=== PATIENT | female | born 1965 | race Caucasian/White ===

== ENCOUNTER → 2017-09-02 10:24 | Outpatient (CLI) | payer MEDICAID, SELFPAY ==
--- NOTE | 2017-09-02 10:27 | NM_ITS ---
NM hepatobiliary wo pharm HISTORY: Right upper quadrant pain ITS.REASON: RUQ PAIN, abnormal ultrasound ORDERING PHYSICIAN: Luc Gonsales MD PATIENT AGE: 51 years COMPARISON: Ultrasound of 07/28/2017 DOSE: 8.57 mCi technetium Choletec Fatty meal/ensure FINDINGS: Homogeneous activity is present within the hepatic parenchyma. Activity is present in the gallbladder by 70 minutes. Activity is present in the small bowel by 10 minutes. The gallbladder ejection fraction is calculated to be 33% No pain reported with the fatty meal ingestion IMPRESSION: 1. Delayed visualization of the gallbladder suggesting chronic inflammatory changes of the cystic duct. 2. Borderline low gallbladder ejection fraction 33%
== END ==
PROVIDERS: PCP Family Medicine; Visit Provider Family Medicine
DX: R10.11 Right upper quadrant pain (principal)
CPT/HCPCS: 78226; A9537

== ENCOUNTER → 2017-09-30 10:34 | Outpatient (CLI) | payer MEDICAID, SELFPAY ==
--- NOTE | 2017-09-30 10:37 | MM_ITS ---
MM Dig screening mamm BI w/CAD CAD Screening ORDERING PHYSICIAN : Yfn Block MD PATIENT AGE: 51 years GENDER: Female COMPARISON:. Prior Mammogram studies from [place], [place] November 2013, September 2010, & 2012 are now found and available INDICATION: No hormones. No new complaints. Bilateral breast reduction. Noncontributory family history TECHNIQUE: Standard CC and MLO images were obtained. R2 CAD reviewed. FINDINGS: Moderate scattered fibroglandular elements. Mild/Moderate density breast bilaterally.. No dominant mass nor suspicious calcifications.CAD computer review highlights no areas of concern There is Minor architecture distortion upper outer quadrant left breast distortion . Patient has had bilateral breast reduction which may account for such. RIGHT BREAST:No areas of concern. Scant potential changes at the deep upper outer quadrant likely from breast reduction surgery history. LEFT BREAST: Mild architectural irregularity is most notable towards upper-outer quadrant left breast but most likely reflects the breast reduction procedure. Although the incisions were the breast reduction appear to be inferior.. No focal area of concern at this time. Prior films of arrived and show similar stable asymmetry at superior left more so than right breast ultrasound supporting stability of this mild architectural irregularity. IMPRESSION: 1. Stable mammogram. No significant new findings Minor architecture irregularity most notable superior left breast, most likely reflecting post reduction breast surgery changes.-. Outside studies further confirm such confirm such. 2. Bilateral follow-up in one year recommended -RADS Category: 2 Benign Finding(s) RECOMMENDED FOLLOW-UP: 1YR - 1 YEAR FOLLOW-UP (A letter has been sent to the patient regarding results of the study.) ...
== END ==
PROVIDERS: PCP Family Medicine; Visit Provider Nurse Practitioner Obstetrics & Gynecology
DX: Z12.31 Encounter for screening mammogram for malignant neoplasm of breast (principal)
CPT/HCPCS: 77067

== ENCOUNTER → 2017-10-13 10:32 | Outpatient (CLI) | payer MEDICAID, SELFPAY ==
[2017-10-13 10:55] LABS: Basophils % 0.5 % (0.1-2.0); Eosinophils # 0.1 K/mm3 (0.0-0.4); Eosinophils % 1.5 % (0.1-12.0); Lymphocytes # 1.3 K/mm3 (0.7-4.5); Mean Corpuscular HGB Conc 32.5 g/dL (31.8-35.4); Mean Corpuscular Hemoglobin 29.8 pg (27.0-31.2); Mean Corpuscular Volume 91.8 fl (81-99); Monocytes # 0.2 K/mm3 (0.1-1.0); Monocytes % 5.8 % (1.7-9.3); Neutrophils # 1.6 K/mm3 (1.8-7.8); Neutrophils % 51.2 % (37.0-80.0); Platelet Count 217 K/mm3 (142-424); Red Blood Count 4.69 M/mm3 (4.20-5.40); Red Cell Distribution Width 11.9 % (11.5-17.5); White Blood Count 3.1 K/mm3 (4.8-10.8)
[2017-10-13 12:59] LABS: Alanine Aminotransferase 35 U/L (12-78); Alkaline Phosphatase 68 U/L (46-116); Anion Gap 11.3 mEq/L (5-15); Aspartate Amino Transferase 21 U/L (15-37); Bilirubin,Total 0.3 mg/dL (0.2-1.0); Blood Urea Nitrogen 21 mg/dL (7-18); Calcium 9.3 mg/dL (8.5-10.1); Carbon Dioxide 30 mmol/L (21.0-32.0); Chloride 104 mmol/L (98-107); Creatinine,Serum 0.69 mg/dL (0.55-1.02); Estimated Glomerular Filt Rate 90 ml/min (>60); GFR (African American) 109 ML/MIN (>60); Globulin 4.2 gm/dl (1.3-3.2); Glucose 78 mg/dL (74-106); Potassium 4.3 mmoL/L (3.5-5.1); Sodium 141 mmol/L (136-145); Total Protein,Serum 8.2 gm/dL (6.4-8.2)
== END ==
PROVIDERS: PCP Family Medicine; Visit Provider Surgery
DX: K81.1 Chronic cholecystitis (principal)
CPT/HCPCS: 36415; 80053; 85025; 93005

== ENCOUNTER 2017-10-22 10:59 | Day surgery (SDC) | payer MEDICAID, SELFPAY ==
[2017-10-19 10:37] VITALS: BMI 24.0
[2017-10-22] VITALS (15 sets, daily range): BP systolic 105–130; BP diastolic 60–78; PULSE 48–66; RESP 16–18; TEMP 36.1–43; O2SAT 98–100
--- NOTE | 2017-10-22 11:44 | P.PN_ITS ---
[facility] Anesthesia Checklist - Patient Identification Patient Identification: Arm Band - Structural Data Admitted From: Home Planned Operative Procedure/s: lap rehana Consent for Planned Operative Procedure(s) Verified: Yes Verified Documents: Surgical Consent, History and Physical - NPO Status Verified Time NPO: 00:00 - Additional verifications Anesthesia Reactions: No - Airway Assessment C-Spine Mobility Assessed: Yes TMJ Mobility Assessed: Yes Dentition: Good Dentition - Neurological Assessment Level of Consciousness: Awake, Alert - Anesthesia Plan Anesthesia Risk discussed: Yes Anesthesia Plan: Verified ASA Class: I Anesthesia Type: General [facility] Anesthesia HX I have reviewed the patient's past medical history: Yes Medical History: Denies:: Cancer, Diabetes Mellitus Type 1, Diabetes Mellitus Type 2, MRSA, Seizures Laterality Cases: Bilateral: Other Other Surgeries: Yes: Tubal Ligation, Other (breast reduction surgery, bladder surgery, jaw surgery) Amputation: No Fractures: No *Family Hx:: Hypertension
--- NOTE | 2017-10-22 12:47 | HMH.OPNOTE ---
Date of procedure: 10/22/17 Pre-op Diagnosis:: Chronic cholecystitis Post-op diagnosis:: same Procedure performed:: Laparoscopic cholecystectomy Surgeon:: Jhoan Neves MD Track Grinder(s):: Leeanne Smith INTERNAL REVIEW AND AUDIT COMPLIANCE:: Luc Sands Anesthesia: GETA Estimated blood loss (mL): 10 Operative findings:: Contraction and thickening of the gallbladder, as well as pericholecystic tissue (specifically infundibulum) Operative note:: After informed consent was obtained, the patient was taken to the operating room and placed in the supine position. General anesthesia was induced and the abdomen was prepped and draped in a sterile fashion. After infiltration with local anesthetic an infraumbilical incision was made. A Veress needle was placed in position. The abdomen was insufflated. A 5 mm optical trocar was placed in position. Under direct visualization, a 12 mm trocar was placed in the subxiphoid position and 2 additional 5 mm trocars were placed in the right upper quadrant. The gallbladder was elevated up and over the liver margin. The tissue around the cystic duct was carefully dissected. 3 clips were placed proximally and the duct was transected with harmonic jada. Harmonic jada were then utilized to dissect the gallbladder away from the liver margin with careful attention to the control of the cystic artery. The gallbladder was placed in a retrieval bag and removed through the subxiphoid trocar site. The right upper quadrant was thoroughly irrigated. No active bleeding or bile leak was noted. Fascia at the subxiphoid trocar site was reapproximated utilizing the NeoClose device. The remaining trocars were removed. All wounds were irrigated and skin was closed with 4-0 Monocryl in a subcuticular fashion. Steri-Strips were applied. The patient's anesthetic agents were reversed and extubation was completed prior to transfer to recovery in stable condition. Condition: stable Disposition: PACU Specimens:: Gallbladder and contents Complications:: No immediate
--- NOTE | 2017-10-22 13:05 | HMH.ANESI ---
[facility] Anesthesia Record Part I Intake, IV Amount: 650 Estimated blood loss (mL): 10 Urine output (mL): 10 Blood Products used (#): none Blood Pressure: 115/78 SaO2: 98 Pulse Rate: 58 Respiratory Rate: 18 Temperature: 97.0 F Patient is:: Drowsy, Stable Stable to PACU at:: 13:05
--- NOTE | 2017-10-22 13:06 | HMH.ANESII ---
[facility] Anesthesia Record Part II Discharge Time: 13:35 Destination: Surgical Day Care (OP Surgery) PACU nurse assessment reviewed?: Yes Patient Condition:: Good Anesthesia Complications:: None
--- NOTE | 2017-10-22 15:37 | SUR.PHASEII ---
pt became nauseated after dressing/movement. Contacted Dr. Neves. Verbal order given for Zofram PO now one time for nausea. Order faxed to pharmacy. Med documented and given. Instructed Pt to let pill dissolve in mouth for best use. Pt verbalzied understanding.
== END 2017-10-22 15:17 | disposition home or self-care (01) ==
LOC: OR 11:00
PROVIDERS: PCP Family Medicine; Visit Provider Surgery
PROC: 0FT44ZZ Resection of Gallbladder, Percutaneous Endoscopic Approach (ICD-10-PCS; CPT 47562; principal; 2017-10-22 10:30)
DX: K81.1 Chronic cholecystitis (principal)
CPT/HCPCS: 47562; 96374; J0131; J2405; J2710

== ENCOUNTER → 2018-10-04 09:04 | Outpatient (CLI) | payer MEDICAID, SELFPAY ==
--- NOTE | 2018-10-04 09:06 | MM_ITS ---
MM Dig screening mamm BI w/CAD CAD Screening COMPARISON: Digital mammograms with CAD 09/30/2017 and 12/26/2013 INDICATION: There is no personal or family history of breast cancer. There has been previous bilateral breast reduction surgery. TECHNIQUE: Standard CC and MLO images were obtained. R2 CAD reviewed. FINDINGS: Moderate scattered fibroglandular densities are seen in both breast primarily upper outer quadrants. There are no significant post surgical changes in either breast. There is no suspicious lesion in either breast and there are no suspicious microcalcifications. IMPRESSION: Moderate breast density no suspicious lesion seen BI-RADS Category: 1 Negative RECOMMENDED FOLLOW-UP: 1YR - 1 YEAR FOLLOW-UP (A letter has been sent to the patient regarding results of the study.)
== END ==
PROVIDERS: PCP Family Medicine; Visit Provider Nurse Practitioner Obstetrics & Gynecology
DX: Z12.31 Encounter for screening mammogram for malignant neoplasm of breast (principal)
CPT/HCPCS: 77067

== ENCOUNTER → 2019-01-16 08:00 | Outpatient (CLI) | payer MEDICAID, SELFPAY ==
[2019-01-16 08:10] LABS: Basophils % 0.5 % (0.1-2.0); Eosinophils # 0.1 K/mm3 (0.0-0.4); Eosinophils % 3.2 % (0.1-12.0); Hematocrit 41.6 % (37.0-47.0); Hemoglobin 13.7 g/dL (12.2-16.2); Lymphocytes # 1.7 K/mm3 (0.7-4.5); Lymphocytes % 44.2 % (10-50); Mean Corpuscular HGB Conc 32.8 g/dL (31.8-35.4); Mean Corpuscular Hemoglobin 29.9 pg (27.0-31.2); Mean Platelet Volume 7.9 fl (7.4-10.4); Monocytes # 0.3 K/mm3 (0.1-1.0); Monocytes % 6.7 % (1.7-9.3); Neutrophils # 1.7 K/mm3 (1.8-7.8); Neutrophils % 45.3 % (37.0-80.0); Platelet Count 223 K/mm3 (142-424); Red Blood Count 4.57 M/mm3 (4.20-5.40); White Blood Count 3.8 K/mm3 (4.8-10.8)
[2019-01-16 10:42] LABS: Alanine Aminotransferase 34 U/L (12-78); Albumin Level 3.6 gm/dL (3.4-5.0); Albumin/Globulin Ratio 0.8 (1.1-1.8); Alkaline Phosphatase 83 U/L (46-116); Anion Gap 13.6 mEq/L (5-15); Aspartate Amino Transferase 18 U/L (15-37); Bilirubin,Total 0.2 mg/dL (0.2-1.0); Blood Urea Nitrogen 20 mg/dL (7-18); Calcium 8.9 mg/dL (8.5-10.1); Carbon Dioxide 29 mmol/L (21.0-32.0); Chloride 103 mmol/L (98-107); Chol/HDL Ratio 3.1 (1-3.5); Cholesterol 202 mg/dL (140-200); Creatinine,Serum 0.88 mg/dL (0.55-1.02); Estimated Glomerular Filt Rate 67 ml/min (>60); GFR (African American) 82 ML/MIN (>60); Globulin 4.4 gm/dl (1.3-3.2); Glucose 84 mg/dL (74-106); HDL Cholesterol 65 mg/dL (29-89); LDL Cholesterol 126 mg/dL (0-130); Potassium 4.6 mmoL/L (3.5-5.1); Sodium 141 mmol/L (136-145); Triglycerides 54 mg/dL (30-200); VLDL Cholesterol 11 mg/dL (0-40)
== END ==
PROVIDERS: Visit Provider Nurse Practitioner Obstetrics & Gynecology
DX: Z01.419 Encounter for gynecological examination (general) (routine) without abnormal findings (principal)
CPT/HCPCS: 36415; 80053; 80061; 85025

== ENCOUNTER → 2019-11-03 10:58 | Outpatient (CLI) | payer OTHER, SELFPAY ==
--- NOTE | 2019-11-03 10:58 | MM_ITS ---
PROCEDURE: MM DIG SCREENING MAMM BI W/CAD BILATERAL DIGITAL BREAST TOMOSYNTHESIS INCLUDED Patient Age:53Y CLINICAL INDICATION: Routine Screening Mammogram 53-year-old Bilateral breast reduction from inferior breast and periareolar incision. No hormones, no new complaints. Family history. Unremarkable COMPARISON: MAMMOGRAM SCREENING DIGITAL from 10/02/2010 MAMMOGRAM SCREENING DIGITAL from 10/11/2012 MAMMOGRAM SCREENING BILATERAL from 12/26/2013 [facility] RT from 01/02/2014 [facility] MM Dig screening mamm BI w/CAD from 09/30/2017 [facility] MM Dig screening mamm BI w/CAD from 10/04/2018 TECHNIQUE: Standard CC and MLO images were obtained. R2 CAD reviewed. BILATERAL DIGITAL BREAST TOMOSYNTHESIS INCLUDED FINDINGS: Minimal residual fibroglandular elements throughout both breast. Progression of mild partial fatty replacement since 2012 2011 mammograms . No suspicious new mass nor dominant mass. No suspicious calcifications.. Tomosynthesis views reveal no discrete additional abnormality with surprisingly minimal architectural distortion from previous breast reduction procedure . Bilateral follow-up 1 year recommended and would be encouraged/emphasized IMPRESSION: No significant new findings Stable mammogram. Previous breast reduction Bilateral follow-up 1 year recommended and should be be encouraged BI-RAD Category: 2 Benign Finding(s) FOLLOW-UP: 1YR 1 Year Follow-up (A letter has been sent to the patient regarding results of the study.) Dictated by: Carlos Enrique Pulliam MD 11/07/2019 09:02 Electronically signed by Carlos Enrique Pulliam MD in [place] 11/07/2019 09:02
== END ==
PROVIDERS: PCP Internal Medicine Adolescent Medicine; Visit Provider Nurse Practitioner Obstetrics & Gynecology
DX: Z12.31 Encounter for screening mammogram for malignant neoplasm of breast (principal)
CPT/HCPCS: 77063; 77067

== ENCOUNTER → 2020-12-18 15:49 | Outpatient (CLI) | payer OTHER, SELFPAY ==
--- NOTE | 2020-12-18 15:53 | MM_ITS ---
PROCEDURE INFORMATION: Exam: MG Screening 3D Mammography Exam date and time: 12/18/2020 3:53 PM Age: 54 years old Clinical indication: Screening exam; No personal or family HX of malignancy; Additional info: Screening xmg TECHNIQUE: Imaging protocol: Screening tomosynthesis and 2D mammography including computer-aided detection (CAD) when performed. COMPARISON: 1. MG MM DIG SCREENING MAMM BI W/CAD 11/03/2019 11:03 AM 2. MG [facility] MM Dig screening mamm BI w/CAD 10/04/2018 9:13 AM 3. MG [facility] MM Dig screening mamm BI w/CAD 09/30/2017 10:53 AM FINDINGS: MAMMOGRAPHY: Breast composition: The breasts are heterogeneously dense, which may obscure small masses. Mass: No new suspicious masses. Architectural distortion: No suspicious distortion. Post reduction changes noted bilaterally. Calcifications: No suspicious calcifications. Asymmetric density: None. Skin thickening: None. Axillary adenopathy: None. IMPRESSION: No mammographic evidence of malignancy. Annual screening is recommended unless otherwise clinically indicated. ASSESSMENT: BI-RADS Category 2: Benign
== END ==
PROVIDERS: PCP Internal Medicine Adolescent Medicine; Visit Provider Nurse Practitioner Obstetrics & Gynecology
DX: Z12.31 Encounter for screening mammogram for malignant neoplasm of breast (principal)
CPT/HCPCS: 77063; 77067

== ENCOUNTER → 2020-12-26 09:30 | Outpatient (CLI) | payer OTHER, SELFPAY ==
--- NOTE | 2020-12-26 09:53 | CA_ITS ---
APPROVED REPORT EXAM: Comprehensive 2D, Doppler, and color-flow Echocardiogram Electrical Appliance Preparer: Ashley Mary, RCS, RVS Ht: 5 ft 4 in Wt: 143lbs BSA: 1.70 HR: 67 bpm BP: 121/73 mmHg Rhythm: NSR Indications: SOB, Family Hx-CM, ex-smoker 2D Dimensions LVOT 1.79 cm (M/F) 1.5-2.5 LA Volume 43.00 mL LA Volume Index [id number] mL/m2 (M/F) 16-34 M-Mode Dimensions RVDd 2.42 cm (0.9-2.6) LA Diam 2.33 cm (1.9-4.0) LVDd 4.58 cm (3.5-5.7) Ao Diam 3.41 cm (2.0-3.7) LVDs 3.08 cm (3.5-5.7) IVSd 0.85 cm (0.6-1.1) PWd 0.52 cm (0.6-1.1) EF (Teich) 63.40% EPSs 0.50 cm FS 34.30% EDV (Teich) 101.90 mL TAPSE 2.51 (<1.7) ESV (Teich) 37.30 mL LV Diastology E Decel Time 157.00 (160-240 msec) E/A Ratio 1.03 MED E' 11.70 (< 7 cm/sec) MED A' 9.80 cm/s E'/MED E' Ratio 7.63 (>14) LAT E' 11.00 (<10 cm/sec) LAT A' 10.10 cm/s E/LAT E' Ratio 8.12 (>14) Aortic Valve LVOT Max 100.00 (70-110 cm/s) LVOT VTI 21.96 cm AoV Peak Cheikh. 145.00 (50-130 cm/s) AO Peak GR. 8.40 mmHg AO Mean GR. 3.90 (<5 mmHg) AO VTI 29.71 (18-25 cm) CAMILLE (VTI) 1.86 (2.5-4.5 cm2) Mitral Valve MV A Velocity 87.00 (40-130 cm/s) E/A Ratio 1.03 MV Decel. Time 157.00 (160-240 ms) Pulmonary Valve PV Peak Velocity 80.00 (50-150 cm/s) VT End VMAX 109.00 cm/s Tricuspid Valve TR P. Velocity 170.00 cm/s Left Ventricle Left atrium is normal size, left ventricle is normal size, there is no concentric left ventricular hypertrophy, visually estimated ejection fraction 55% with no regional wall motion abnormality, diastolic parameters are inconclusive. Right Ventricle Right atrium and right ventricle are normal size and contractility. Aortic Valve Aortic valve is grossly normal, there is no aortic stenosis or aortic insufficiency. Mitral Valve Mitral valve grossly normal, there is trace mitral regurgitation. Tricuspid Valve Tricuspid grossly normal, there is trace tricuspid regurgitation, tricuspid regurgitation jet velocity is inadequate for calculation of the right ventricular systolic pressure. Pulmonic Valve Pulmonic valve is poorly visualized. Great Vessels Aortic root is normal size. Pericardium No significant pericardial effusion noted. Conclusion 1. Normal left ventricular size, preserved left ventricular systolic function, visually estimated ejection fraction 55% with no regional wall motion abnormality. Diastolic parameters are within normal range. 2. Trace mitral and tricuspid regurgitation. 3. No significant pericardial effusion noted. Electronically signed by : Chacho Chavez, 12/26/2020 15:40:00
== END ==
PROVIDERS: PCP Internal Medicine Adolescent Medicine; Visit Provider Nurse Practitioner Family
DX: R06.02 Shortness of breath (principal)
CPT/HCPCS: 93306

== ENCOUNTER → 2021-09-08 09:44 | Outpatient (CLI) | payer OTHER, SELFPAY ==
[2021-09-08 11:12] LABS: Alanine Aminotransferase 23 U/L (12-78); Albumin Level 4.5 g/dl (3.5-5.0); Albumin/Globulin Ratio 1.5 (1.1-1.8); Alkaline Phosphatase 64 U/L (38-126); Anion Gap 10.3 mEq/L (5-15); Aspartate Amino Transferase 33 U/L (14-36); Bilirubin,Total 0.3 mg/dl (0.2-1.3); Blood Urea Nitrogen 18 mg/dl (7-17); Calcium 9.7 mg/dl (8.4-10.2); Carbon Dioxide 33 mmol/L (22.0-30.0); Chloride 101 mmol/L (98-107); Chol/HDL Ratio 3.3 (1-3.5); Cholesterol 208 mg/dl (140-200); Estimated Glomerular Filt Rate 75 ml/min (>60); GFR (African American) 90 ML/MIN (>60); Globulin 3.1 g/dL (1.3-3.2); Glucose 88 mg/dl (74-100); HDL Cholesterol 63 mg/dl (40-60); Potassium 4.3 mmoL/L (3.5-5.1); Sodium 140 mmol/L (136-145); Total Protein,Serum 7.6 g/dl (6.3-8.2); Triglycerides 90 mg/dl (30-150); VLDL Cholesterol 18 mg/dL (0-40)
[2021-09-08 11:34] LABS: Direct LDL Cholesterol 117.72 mg/dL (100-129)
== END ==
PROVIDERS: Visit Provider Nurse Practitioner Family
DX: Z00.00 Encounter for general adult medical examination without abnormal findings (principal)
CPT/HCPCS: 36415; 80053; 80061

== ENCOUNTER → 2022-01-22 08:03 | Outpatient (CLI) | payer OTHER, SELFPAY ==
--- NOTE | 2022-01-22 08:13 | MM_ITS ---
PROCEDURE INFORMATION: Exam: MG Bilateral Screening 3D Mammography Exam date and time: 01/22/2022 8:06 AM Age: 56 years old Clinical indication: Screening mammogram. TECHNIQUE: Imaging protocol: Bilateral Screening tomosynthesis and 2D mammography including computer-aided detection (CAD) when performed. COMPARISON: 1. MG MM DIG SCREENING MAMM BI W/CAD 12/18/2020 3:56 PM 2. MG MM DIG SCREENING MAMM BI W/CAD 11/03/2019 11:03 AM 3. MG [facility] MM Dig screening mamm BI w/CAD 10/04/2018 9:13 AM 4. MG [facility] MM Dig screening mamm BI w/CAD 09/30/2017 10:53 AM FINDINGS: MAMMOGRAPHY: Breast composition: There are scattered areas of fibroglandular density. Mass: None. Architectural distortion: No new or suspicious architectural distortion. Calcifications: No new or suspicious calcifications are present Asymmetric density: No new or suspicious asymmetric density is present Skin thickening: None. Axillary adenopathy: None. IMPRESSION: No mammographic evidence of malignancy. Recommend annual screening mammography unless otherwise clinically indicated. ASSESSMENT: BI-RADS category 1: Negative
== END ==
PROVIDERS: PCP Internal Medicine Adolescent Medicine; Visit Provider Nurse Practitioner Obstetrics & Gynecology
DX: Z12.31 Encounter for screening mammogram for malignant neoplasm of breast (principal)
CPT/HCPCS: 77063; 77067

== ENCOUNTER → 2022-12-18 13:20 | Outpatient (CLI) | payer OTHER, SELFPAY ==
--- NOTE | 2022-12-18 13:41 | XR_ITS ---
FINAL REPORT CLINICAL HISTORY: GANGLION CYST OF DORSUM OF LEFT WRIST COMPARISON: None FINDINGS: LEFT WRIST Three views demonstrate no acute fracture or dislocation. The visualized joint spaces are normally aligned. The soft tissues are unremarkable. IMPRESSION: No acute bony abnormality. Reviewed, Interpreted and Dictated by Grover Brown III, MD Transcribed by Regina Gtz Authenticated and . [facility]
[2022-12-18 15:05] LABS: Alanine Aminotransferase 23 U/L (12-78); Albumin Level 4.2 g/dl (3.5-5.0); Albumin/Globulin Ratio 1.4 (1.1-1.8); Alkaline Phosphatase 70 U/L (38-126); Anion Gap 10.4 mEq/L (5-15); Aspartate Amino Transferase 33 U/L (14-36); Bilirubin,Total 0.4 mg/dl (0.2-1.3); Blood Urea Nitrogen 14 mg/dl (7-17); Calcium 9.1 mg/dl (8.4-10.2); Carbon Dioxide 31 mmol/L (22.0-30.0); Chloride 103 mmol/L (98-107); Chol/HDL Ratio 2.9 (1-3.5); Cholesterol 210 mg/dl (140-200); Estimated Glomerular Filt Rate 74 ml/min (>60); GFR (African American) 90 ML/MIN (>60); Glucose 75 mg/dl (74-100); HDL Cholesterol 72 mg/dl (40-60); Potassium 4.4 mmoL/L (3.5-5.1); Sodium 140 mmol/L (136-145); Total Protein,Serum 7.2 g/dl (6.3-8.2); Triglycerides 55 mg/dl (30-150); VLDL Cholesterol 11 mg/dL (0-40)
[2022-12-18 15:16] LABS: Direct LDL Cholesterol 100.23 mg/dL (100-129)
== END ==
PROVIDERS: PCP Nurse Practitioner Family; Visit Provider Nurse Practitioner Family
DX: Z00.00 Encounter for general adult medical examination without abnormal findings (principal); E78.2 Mixed hyperlipidemia
CPT/HCPCS: 36415; 73110; 80053; 80061

== ENCOUNTER 2023-01-04 15:02 | Outpatient (RCR) | payer OTHER, SELFPAY ==
--- NOTE | 2023-01-04 16:06 | HMH.OTOPEV ---
OT Inpatient Evaluation Rehab OT Outpatient Eval Start: 01/04/23 15:55 Freq: Status: Active Protocol: Document 01/04/23 15:55 RMARSHALL (Rec: 01/04/23 16:06 [facility] [id number]) E-signed By Maged Hernadez, OT Outpatient Therapy Subjective History Subjective History Pt is a 57 year old female who reports to therapy for initial evaluation to right elbow. Pt has been experiencing pain in right elbow on both lateral and medial epicondyles for ~2+ years now. She does not recall a specific injury to right elbow initiating the pain. She is right hand dominant. Pt is very active and lifts weights recreationally. Upon evaluation, pt also expressed palpation tenderness over bicep muscle. At this time, she does have a visit scheduled with ortho at the end of the month. Pt's AROM is within normal limits, but strength is slightly declined. 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 Pt has been resting arm and not completing strenuous activity. She reports since resting, she has had decreased pain. Therapist will continue to see patient twice a week in order to address all deficits. 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
== END 2023-01-04 15:05 | disposition home or self-care (01) ==
LOC: OT 15:02
PROVIDERS: PCP Nurse Practitioner Family; Visit Provider Nurse Practitioner Family
DX: M77.11 Lateral epicondylitis, right elbow (principal)
CPT/HCPCS: 97166

== ENCOUNTER 2023-02-21 13:09 | Emergency (ER) | payer OTHER, SELFPAY ==
[2023-02-21 13:22] VITALS: BP 139/96; PULSE 75; RESP 18; TEMP 36.9; O2SAT 100; BMI 24.9
--- NOTE | 2023-02-21 13:25 | XR_ITS ---
PROCEDURE INFORMATION: Exam: XR Right Foot Exam date and time: 02/21/2023 1:33 PM Age: 57 years old Clinical indication: Injury or trauma; Other: Twisted right foot; Blunt trauma; Patient HX: Pain over right fifth metatarsal. ; Additional info: Twisted right foot, base of right 5th mtp pain TECHNIQUE: Imaging protocol: Radiologic exam of the right foot. Views: 3 or more views. COMPARISON: No relevant prior studies available. FINDINGS: Bones/joints: Oblique, minimally displaced fracture mid shaft 5th metatarsal bone. No articular extension. Soft tissues: Normal. IMPRESSION: Oblique, minimally displaced fracture mid shaft 5th metatarsal bone. No articular extension.
--- NOTE | 2023-02-21 13:25 | HMH.EDGENADL ---
Discharge Plan Disposition Patient Disposition: Home, Self-Care Condition: Good Chief Complaint: PAIN Prescriptions Prescriptions: No Action dextroamphetamine-amphetamine 10 mg tablet 10 mg PO Label Comments: TAKE 2 TABLETS BY MOUTH ONCE DAILY FOR 30 DAYS valacyclovir 1 gram tablet 1,000 mg PO Referrals Follow up/Referrals: Luc Meng MD [Primary Care Provider] - See instructions Justen Diop JR, MD [Physician] - See instructions (Right fifth metatarsal fracture) Activity Restrictions/Add. Instructions Additional Instructions/Restrictions: Weightbearing as tolerated, wear boot at all times while not sleeping. Do not bear weight and shower. Move ankle as minimally as possible, as this can worsen fracture pattern. If you have any other concerning signs or symptoms, return to the ER for further evaluation. Dr. Diop will see you in clinic this coming week, contact the clinic listed here on discharge paperwork to schedule appointment on Wednesday, 02/22. Clinical Impressions Clinical Impression: Fracture of fifth metatarsal bone of right foot Qualifiers: Encounter type: initial encounter Fracture type: closed Fracture alignment: displaced Qualified Code(s): S92.351A - Displaced fracture of fifth metatarsal bone, right foot, initial encounter for closed fracture Discharge ED Provider: Luis F Ralph General Adult HPI General Chief complaint: PAIN Stated complaint: [id number] right foot pain, home accident Time Seen by Provider: 02/21/23 13:15 Mode of Arrival: Ambulatory Source of Information: Patient Limitations: No Limitations Description of Symptoms (Recalled from ER Triage Doc. by RN): pt to ed c/o right foot pain. pt states she fell on . History of Present Illness HPI narrative: This is a 57-year-old female with no relevant medical history presenting with right foot pain. Patient states that 2 days prior to arrival, she was walking down the steps and twisted her right foot. Fell down 3 steps, no loss of consciousness. Is having pain at the proximal end of her right fifth digit on her foot. Denies ankle pain,. Patient has been able to bear weight when walking on her heel. Significant pain when trying to walk on her foot flat. No numbness, weakness, tingling, or any other concerns Related Data Home Medications Medication Instructions Recorded Confirmed dextroamphetamine-amphetamine 10 10 mg PO 11/14/20 11/23/22 mg tablet valacyclovir 1 gram tablet 1,000 mg PO 11/14/20 11/23/22 Allergies Allergy/AdvReac Type Severity Reaction Status Date / Time No Known Allergies Allergy Verified 11/23/22 13:47 [facility] Disclaimer: The information contained in this section may have been updated after the patient was seen, as this information can be updated by other users. Surgical History (Updated 11/23/22 @ 13:55 by KARINA Arriaza) History of bladder surgery Hx of breast reduction, elective Hx of cholecystectomy Hx of tubal ligation Family History (Updated 11/23/22 @ 13:55 by KARINA Arriaza) Other No significant family history Social History Smoking Status: Never smoker alcohol intake: never counseling provided: provider counseling substance use type: denies use current occupational status: employed Travel in the last 8 weeks: None household members: spouse housing: house ROS Obtained: Yes All systems reviewed & no additional complaints except as documented Physical Exam General General appearance: alert and in no apparent distress Respiratory Respiratory exam: Absent respiratory distress Cardiovascular Cardiovascular exam: Present other (pulses intact, cap refill intact) Extremities Exam Extremities exam: Present tenderness, edema and other (Swelling, bruising, tenderness distal aspect of right fifth metatarsal. No ankle tenderness, base of fifth metatarsal tenderness, navicular tenderness. Neurovascularly intact) N
--- NOTE | 2023-02-21 13:40 | PC.NURSE ---
pt to radiology
[2023-02-21 14:40] VITALS: BP 140/89; PULSE 76; RESP 18; TEMP 36.9; O2SAT 100
== END 2023-02-21 14:52 | disposition home or self-care (01) ==
PROVIDERS: Emergency Provider Emergency Medicine; PCP Internal Medicine Adolescent Medicine
DX: S92.311A Displaced fracture of first metatarsal bone, right foot, initial encounter for closed fracture (principal); W10.9XXA Fall (on) (from) unspecified stairs and steps, initial encounter
CPT/HCPCS: 73630; 99283; 99284

== ENCOUNTER → 2023-04-02 10:20 | Outpatient (CLI) | payer OTHER, SELFPAY ==
--- NOTE | 2023-04-02 10:24 | XR_ITS ---
FINAL REPORT CLINICAL HISTORY: rt foot pain, f/u fx COMPARISON: 02/21/2023 FINDINGS: Right foot Three views were obtained. There is an oblique subacute fracture of the mid and distal 5th metatarsal. There is increased callus formation at the fracture site. IMPRESSION: Healing fracture as above. Reviewed, Interpreted and Dictated by Grover Brown III, MD Transcribed by Orly Price Authenticated and [facility]
== END ==
PROVIDERS: PCP Internal Medicine Adolescent Medicine; Visit Provider Orthopaedic Surgery
DX: S92.351A Displaced fracture of fifth metatarsal bone, right foot, initial encounter for closed fracture (principal)
CPT/HCPCS: 73630

== ENCOUNTER → 2023-04-07 15:54 | Outpatient (CLI) | payer OTHER, SELFPAY ==
--- NOTE | 2023-04-07 15:57 | MM_ITS ---
PROCEDURE INFORMATION: Exam: MG Bilateral Screening 3D Mammography Exam date and time: 04/07/2023 3:49 PM Age: 57 years old Clinical indication: Screening mammogram TECHNIQUE: Imaging protocol: Bilateral Screening tomosynthesis and 2D mammography including computer-aided detection (CAD) when performed. COMPARISON: 1. MG MM DIG SCREENING MAMM BI W/CAD 01/22/2022 8:06 AM 2. MG MM DIG SCREENING MAMM BI W/CAD 12/18/2020 3:56 PM 3. MG MM DIG SCREENING MAMM BI W/CAD 11/03/2019 11:03 AM 4. MG [facility] MM Dig screening mamm BI w/CAD 10/04/2018 9:13 AM FINDINGS: MAMMOGRAPHY: Breast composition: There are scattered areas of fibroglandular density. Mass: None. Architectural distortion: No new or suspicious architectural distortion. Calcifications: No new or suspicious calcifications are present Asymmetric density: No new or suspicious asymmetric density is present Skin thickening: None. Axillary adenopathy: None. IMPRESSION: No mammographic evidence of malignancy. Recommend annual screening mammography unless otherwise clinically indicated. ASSESSMENT: BI-RADS category 1: Negative
== END ==
PROVIDERS: PCP Internal Medicine Adolescent Medicine; Visit Provider Nurse Practitioner Obstetrics & Gynecology
DX: Z12.31 Encounter for screening mammogram for malignant neoplasm of breast (principal)
CPT/HCPCS: 77063; 77067

== ENCOUNTER → 2023-04-14 10:05 | Outpatient (CLI) | payer OTHER, SELFPAY ==
--- NOTE | 2023-04-14 10:05 | MR_ITS ---
FINAL REPORT CLINICAL HISTORY: LEFT WRIST PAIN, GANGLION CYST COMPARISON: None FINDINGS: Multiplanar MR imaging of the wrist was performed without contrast. The bony structures are intact without evidence of fracture, bone bruise or marrow edema. There is mild degenerative change. There are cysts in multiple carpal bones. There is abnormal signal in the proximal lunate worrisome for osteonecrosis or osteochondral lesion measuring 8 mm transverse dimension. Cysts are noted in the ulnar styloid process. There is no evidence of intrinsic ligament injury. There is a small tear perforation at the radial aspect of the triangular fibrocartilage. There is mild ulnar positive variance and may be ulnar impaction syndrome. There is extensor carpi ulnaris tendinitis. The flexor and extensor tendons are otherwise intact. There is a small cyst in the volar radial aspect of the radiocarpal joint measuring 7 mm and consistent with a ganglion cyst. In addition, there is a 7 mm cyst in the medial subcutaneous tissues also consistent with a ganglion cyst seen just posteromedial to the extensor carpi ulnaris tendon. No focal abnormality is identified of the median nerve. IMPRESSION: Findings worrisome for ulnar impaction syndrome with osteonecrosis or osteochondral lesion in the proximal lunate with small tear or perforation at the radial aspect of the triangular fibrocartilage. Small ganglion cysts volar radial and medial aspect of the wrist. Mild ECU tenosynovitis. Reviewed, Interpreted and Dictated by Grover Brown III, MD Transcribed by Regina Gtz Authenticated and [facility]
== END ==
PROVIDERS: PCP Internal Medicine Adolescent Medicine; Visit Provider Orthopaedic Surgery
DX: M25.532 Pain in left wrist (principal); M67.432 Ganglion, left wrist
CPT/HCPCS: 73221

== ENCOUNTER 2024-05-22 11:06 | Outpatient (CLI) | payer OTHER, SELFPAY ==
[2024-05-22 12:03] LABS: Alanine Aminotransferase 30 U/L (12-78); Albumin Level 4.4 g/dl (3.5-5.0); Albumin/Globulin Ratio 1.3 (1.1-1.8); Alkaline Phosphatase 57 U/L (38-126); Anion Gap 7.5 mEq/L (5-15); Aspartate Amino Transferase 37 U/L (14-36); Bilirubin,Total 0.5 mg/dl (0.2-1.3); Blood Urea Nitrogen 18 mg/dl (7-17); Calcium 10.1 mg/dl (8.4-10.2); Carbon Dioxide 29 mmol/L (22.0-30.0); Chloride 108 mmol/L (98-107); Cholesterol 228 mg/dl (140-200); Estimated Glomerular Filt Rate 65 ml/min (>60); GFR (African American) 78 ML/MIN (>60); Globulin 3.3 g/dL (1.3-3.2); Glucose 84 mg/dl (74-100); HDL Cholesterol 77 mg/dl (40-60); Potassium 4.5 mmoL/L (3.5-5.1); Sodium 140 mmol/L (136-145); Total Protein,Serum 7.7 g/dl (6.3-8.2); Triglycerides 87 mg/dl (30-150); VLDL Cholesterol 17 mg/dL (0-40)
[2024-05-22 12:14] LABS: Direct LDL Cholesterol 108.57 mg/dL (100-129)
== END 2024-05-22 23:59 | disposition home or self-care (01) ==
LOC: LAB 11:11
PROVIDERS: PCP Nurse Practitioner Family; Visit Provider Nurse Practitioner Family
DX: Z00.00 Encounter for general adult medical examination without abnormal findings (principal); E78.2 Mixed hyperlipidemia
CPT/HCPCS: 36415; 80053; 80061

== ENCOUNTER 2024-05-22 11:28 | Emergency (ER) | payer OTHER, SELFPAY ==
--- NOTE | 2024-05-22 11:34 | XR_ITS ---
FINAL REPORT CLINICAL HISTORY: INJURY x 1 week ago COMPARISON: None FINDINGS: Three views of the left foot show no evidence of acute displaced fracture or dislocation of the visualized bony architecture. The joint spaces appear normal. IMPRESSION: Unremarkable exam. Reviewed, Interpreted and Dictated by Delma Jean MD Transcribed by Regina Gtz Authenticated and . [facility]
[2024-05-22 12:13] VITALS: BP 140/72; PULSE 63; RESP 20; TEMP 36.6; O2SAT 100; BMI 25.7
--- NOTE | 2024-05-22 12:16 | PC.NURSE ---
pts family is bedside, I updated them on what happened and the current plan.
--- NOTE | 2024-05-22 12:23 | ED_ITS ---
Discharge Plan Disposition Patient Disposition: Home, Self-Care Condition: Good Prescriptions Prescriptions: No Action dextroamphetamine-amphetamine 10 mg tablet 10 mg PO Patient Comments: TAKE 2 TABLETS BY MOUTH ONCE DAILY FOR 30 DAYS valacyclovir 1 gram tablet 1,000 mg PO Referrals Follow up/Referrals: Samantha Vickers APRN [Nurse Practitioner] - See instructions Lisa Quiroga APRN [Primary Care Provider] - See instructions Christel Betancourt DPM [Staff Physician] - See instructions Activity Restrictions/Add. Instructions Additional Instructions/Restrictions: *weight bearing as tolerated *RICE, Rest the extremity, Ice 15-20 minutes 3-4 times daily, Compress- wear the jose wrap as discussed as much as possible to help reduce swelling and pain, Elevate the extremity when at rest *Jose wrap/Walking boot is for support and help control swelling, use it except in the shower. Be sure that is not to tight but not to loose either *Elevate when resting? *Ibuprofen 600-800mg every 6-8 hours as needed for pain an inflammation. If need something more can take Tylenol in between doses of Ibuprofen to help Immediately follow up with your family doctor for new or worsening of symptoms, or no noticeable improvement over the next 3-5 days Clinical Impressions Clinical Impression: Foot sprain Instructions Patient Instructions: How To Perform RICE (Rest, Ice, Compress, Elevate), DI for Foot Sprain Print Language Print Language: Amharic Discharge ED Provider: Kim Callahan [facility] HPI General Stated complaint: AO- Pain L foot Mode of Arrival: Ambulatory Source of Information: Patient Time Seen by Provider: 05/22/24 12:23 Description of Symptoms (Recalled from Triage Doc. by RN): LEFT FOOT INJURY FROM STEPPING INTO A HOLE HEENT Symptoms (Recalled from RN notes): No Resp Symptoms (Recalled from RN notes): No Skin Symptoms (Recalled from RN notes): No MS Symptoms (Recalled from RN notes): Yes Functional Status (Recalled from RN notes): WNL History of Present Illness Provider Complaint: Patient states that she accidently stepped in a hole and has been having pain in the top of her foot at the base of her toes States she has been icing it and keeping it elevated but it was still sore and hurting so she wanted to get it checked States she has boot at home Related Data Home Medications ?Medication ?Instructions ?Recorded ?Confirmed dextroamphetamine-amphetamine 10 10 mg PO 11/14/20 12/27/23 mg tablet valacyclovir 1 gram tablet 1,000 mg PO 11/14/20 12/27/23 Allergies Allergy/AdvReac Type Severity Reaction Status Date / Time No Known Allergies Allergy Verified 12/27/23 09:01 Worker's Comp Is this a Worker's Comp case?: No [facility] Disclaimer: The information contained in this section may have been updated after the patient was seen, as this information can be updated by other users. Surgical History History of bladder surgery Hx of breast reduction, elective Hx of cholecystectomy Hx of tubal ligation Family History Other No significant family history Social History Smoking Status: Never smoker alcohol intake: never counseling provided: provider counseling substance use type: denies use current occupational status: employed Travel in the last 8 weeks: None household members: spouse housing: house ROS Obtained: Yes All systems reviewed & no additional complaints except as documented and Yes Systems reviewed as appropriate & no additional complaints except as documented Constitutional Constitutional: Reports system reviewed and no additional complaints, except as documented and Reports as per HPI ENT Ears, Nose, Mouth, and Throat: Reports system reviewed and no additional complaints, except as documented and Reports as per HPI Cardiovascular Cardiovascular: Reports system reviewed and no additional complaints, except as documented and Reports as per HPI Respiratory Respiratory: Reports system reviewed and no additional complaints, except as documented and Reports as per HPI Gastrointestinal Gastrointestingal: Reports system reviewed and no additional complaints, except as documented and as per HPI Musculoskeletal Musculoskeletal: Reports system reviewed and no additional complaints, except as documented, Reports as per HPI and Reports other (pain in top of left foot after stepping a hole) Physical Exam General General appearance: alert and in no apparent distress ENT ENT exam: Present mucous membranes moist Chest Chest inspection: Present normal inspection and symmetric chest wall rise Respiratory Respiratory exam: Present normal lung sounds bilaterally; Absent respiratory distress or wheezes Cardiovascular Cardiovascular exam: Present regular rate, normal rhythm and normal heart sounds Expanded Lower Extremity Exam Left: Foot/toe exam: Present tenderness; Absent swelling, abrasion, ecchymosis, deformity or erythema Top foot image: 2 1. reports pain and soreness with walking after she stepped in a hole and twisted her foot, no swelling no discoloration noted + pedal pulses palpated Neurovascular/Tendon exam: Present normal capillary refill Gait: observed and normal Neurological Exam Neurological exam: Present alert, oriented X3 and normal gait Medical Decision Making Medical Records Screening: Per USPSTF and CDC recommendations, given the prevalence of disease in our region, it is our hospital?s policy to screen for HIV and viral Hepatitis for all patients aged 18 and over and those with ongoing risk factors. Rohan Inquiry Pt receiving controlled substance: No Rohan was queried for this patient: No Vital Signs: 05/22/24 12:13 Temperature 97.9 F Temperature Source Oral Pulse Rate [Left Brachial] 63 Respiratory Rate 20 Blood Pressure [Left Arm] 140/72 Blood Pressure Mean [Left Arm] 94 02 Sat by Pulse Oximetry 100 Orders (Tests/Meds): ORDERS Category Date Time Status Foot XR left minimum 3 views [XR foot LT min 3V] Stat Exams 05/22/24 11:34 Taken Radiology Data #1: Image(s): Foot/Toes Image Reviewed: Yes I have reviewed radiologist's interpretation Unremarkable exam no acute or displaced fracture
[2024-05-22 13:04] VITALS: BP 140/72; PULSE 63; RESP 20; TEMP 36.6
== END 2024-05-22 13:05 | disposition home or self-care (01) ==
PROVIDERS: Emergency Provider Nurse Practitioner; PCP Nurse Practitioner Family
DX: M79.672 Pain in left foot (principal); S93.602A Unspecified sprain of left foot, initial encounter; W18.42XA Slipping, tripping and stumbling without falling due to stepping into hole or opening, initial encounter
CPT/HCPCS: 73630; 99203; 99212; G0463

== ENCOUNTER 2024-06-06 10:07 | Outpatient (CLI) | payer OTHER, SELFPAY ==
--- NOTE | 2024-06-06 10:10 | MM_ITS ---
PROCEDURE INFORMATION: Exam: MG Bilateral Screening 3D Mammography Exam date and time: 06/06/2024 9:59 AM Age: 58 years old Clinical indication: Screening. No family history of breast cancer. TECHNIQUE: Imaging protocol: Bilateral Screening tomosynthesis and 2D mammography including computer-aided detection (CAD) when performed. COMPARISON: 1. MG MM DIG SCREENING MAMM BI W/CAD 04/07/2023 3:49 PM 2. MG MM DIG SCREENING MAMM BI W/CAD 01/22/2022 8:06 AM 3. MG MM DIG SCREENING MAMM BI W/CAD 12/18/2020 3:56 PM 4. MG MM DIG SCREENING MAMM BI W/CAD 11/03/2019 11:03 AM FINDINGS: MAMMOGRAPHY: Breast composition: There are scattered areas of fibroglandular density. Mass: None. Architectural distortion: Stable diffuse bilateral architectural distortion with history of reduction mammoplasty. Calcifications: No suspicious calcifications. Asymmetric density: None. Skin thickening: None. Axillary adenopathy: None. IMPRESSION: No mammographic evidence of malignancy. Annual screening is recommended unless otherwise clinically indicated. ASSESSMENT: BI-RADS Category 2: Benign.
== END 2024-06-06 23:59 | disposition home or self-care (01) ==
LOC: RAD 10:07
PROVIDERS: PCP Nurse Practitioner Family; Visit Provider Nurse Practitioner Family
DX: Z12.31 Encounter for screening mammogram for malignant neoplasm of breast (principal)
CPT/HCPCS: 77063; 77067

== ENCOUNTER 2024-06-06 10:31 | Emergency (ER) | payer OTHER, SELFPAY ==
[2024-06-06 10:32] VITALS: BP 143/84; PULSE 75; RESP 16; TEMP 36.6; O2SAT 99; BMI 25.7
--- NOTE | 2024-06-06 10:47 | ED_ITS ---
Discharge Plan Disposition Patient Disposition: Home, Self-Care Condition: Good Prescriptions Prescriptions: No Action dextroamphetamine-amphetamine 10 mg tablet 10 mg PO Patient Comments: TAKE 2 TABLETS BY MOUTH ONCE DAILY FOR 30 DAYS valacyclovir 1 gram tablet 1,000 mg PO Referrals Follow up/Referrals: Roman Collier DO [Staff Physician] - See instructions Luc Meng MD [Primary Care Provider] - See instructions Activity Restrictions/Add. Instructions Additional Instructions/Restrictions: As we discussed, your x-ray shows that you have a fracture of the second metatarsal bone of your foot. We have provided you a walking boot, please bear weight as tolerated. I would recommend you use ibuprofen as needed for pain. I have placed a referral to the orthopedic doctor to have you follow-up to make sure this injury is healing appropriately. Please return with any new or worsening symptoms. Clinical Impressions Clinical Impression: Closed fracture of second metatarsal bone Qualifiers: Encounter type: subsequent encounter Fracture alignment: nondisplaced Laterality: left Instructions Patient Instructions: DI for Foot Fracture Print Language Print Language: Kyrgyz Discharge ED Provider: Nathan Saenz General Adult HPI General Chief complaint: Extremity Injury, Lower Stated complaint: left foot pain and swollen Time Seen by Provider: 06/06/24 10:45 History of Present Illness HPI narrative: Patient is a 60-year-old female who presents with pain over the top of her left foot. This was acute in onset after traumatic injury that occurred francisco roximately 2 weeks ago. She reportedly had x-rays obtained at the time of the incident which were negative at that time. She has been bearing weight on that foot. She denies any previous therapies. She has developed associated swelling over the injured area. No open injuries. No pain elsewhere. No ankle pain. No numbness or tingling. No history of surgeries on that foot. No head injury at that time. Please note that above description of symptoms, in this electronic medical record under categorization of recalled from ER triage doctor by RN are reflective of an initial nursing assessment, however, is not reflective of my full history and physical exam that was personally taken and clarified. Consequentially, this preceding description of symptoms, which may include the patient's categorized chief complaint in the EMR, do not reflect my personal clinical impression, and the ultimate description of history of present illness and patient stated complaints should be deferred to this section of the note. Unless stated otherwise or congruent with this section of the note, additional signs, symptoms, or incongruence should be interpreted as inaccurate with my clinical impression. Related Data Home Medications ?Medication ?Instructions ?Recorded ?Confirmed dextroamphetamine-amphetamine 10 10 mg PO 11/14/20 12/27/23 mg tablet valacyclovir 1 gram tablet 1,000 mg PO 11/14/20 12/27/23 Allergies Allergy/AdvReac Type Severity Reaction Status Date / Time No Known Allergies Allergy Verified 12/27/23 09:01 [facility] Disclaimer: The information contained in this section may have been updated after the patient was seen, as this information can be updated by other users. Surgical History History of bladder surgery Hx of breast reduction, elective Hx of cholecystectomy Hx of tubal ligation Family History Other No significant family history Social History Smoking Status: Never smoker alcohol intake: never counseling provided: provider counseling substance use type: denies use current occupational status: employed Travel in the last 8 weeks: None household members: spouse housing: house Other Medical History Have you received the Flu Vaccine for this season: No Have you received the Pneumonia Vaccine: No ROS Obtained: Yes other As per HPI Physical Exam General General appearance: alert and in no apparent distress Head Head exam: atraumatic and normocephalic Eye Eye exam: Present normal appearance Neck Neck exam: Present normal inspection Chest Chest inspection: Present normal inspection and symmetric chest wall rise Respiratory Respiratory exam: Present normal lung sounds bilaterally; Absent respiratory distress Cardiovascular Cardiovascular exam: Present regular rate and normal rhythm Abdominal Exam Abdominal exam: Present soft Neurological Exam Neurological exam: Present alert and oriented X3 Psychiatric Psychiatric exam: Present normal affect and normal mood Skin Skin exam: Present warm and dry Other Other exam information: Tenderness to palpation of dorsum of left foot, associated mild amount of swe lling. Distally neurovascularly intact Medical Decision Making Medical Records Medical records reviewed: Yes I reviewed the patient's medical records. Screening: Per USPSTF and CDC recommendations, given the prevalence of disease in our region, it is our hospital?s policy to screen for HIV and viral Hepatitis for all patients aged 18 and over and those with ongoing risk factors. Rohan Inquiry Pt receiving controlled substance: No Vital Signs: 06/06/24 10:32 06/06/24 11:00 06/06/24 11:30 Temperature 97.8 F Temperature Source Oral Pulse Rate 64 59 L Pulse Rate [Left Radial] 75 Respiratory Rate 16 Blood Pressure 143/84 H 120/83 Blood Pressure [Right Arm] 143/84 H Blood Pressure Mean 109 Blood Pressure Mean [Right Arm] 103 Blood Pressure Source [Right Arm] Automatic Cuff Blood Pressure Position [Right Arm] Sitting 02 Sat by Pulse Oximetry 99 100 98 Oxygen Delivery Method Room Air Room Air 06/06/24 12:00 06/06/24 12:38 Temperature 97.8 F Temperature Source Pulse Rate 71 71 Pulse Rate [Left Radial] Respiratory Rate 16 Blood Pressure 149/88 H 155/85 H Blood Pressure [Right Arm] Blood Pressure Mean Blood Pressure Mean [Right Arm] Blood Pressure Source [Right Arm] Blood Pressure Position [Right Arm] 02 Sat by Pulse Oximetry 98 Oxygen Delivery Method Room Air Room Air Orders (Tests/Meds): ORDERS Category Date Time Status XR foot LT min 3V Stat Exams 06/06/24 11:29 Completed Medical Decision Narrative: Patient with history and exam per above presenting for evaluation of foot pain Diagnoses considered include fracture, soft tissue injury, no clinical evidence to suggest vascular injury, nerve injury at this time. ED workup and treatment included: Three-view x-ray of left foot Imaging was independently visualized and interpreted by me, significant for closed minimally displaced metatarsal fracture Please refer to radiology report for full details. Patient was provided [place] boot and crutches. I discussed my clinical impression with patient and answered all questions. At this time, the evidence for any other entities in the differential is insufficient to warrant any further testing or ED observation. This was explained to the patient. The patient was advised that persistent or worsening symptoms require further evaluation. Critical Care Critical Care Time Critical Care Time: No
[2024-06-06 11:00] VITALS: BP 143/84; PULSE 64; O2SAT 100
--- NOTE | 2024-06-06 11:29 | XR_ITS ---
FINAL REPORT CLINICAL HISTORY: increasing left foot pain after injury 3 weeks ago FINDINGS: 3 views of the left foot were obtained. There is some periosteal reaction along the distal aspect of the second metatarsal likely representing a subacute fracture. No other focal bony abnormality is identified. A small plantar calcaneal spur is present. IMPRESSION: Subacute distal second metatarsal fracture. Authenticated and [facility]
[2024-06-06 11:30] VITALS: BP 120/83; PULSE 59; O2SAT 98
[2024-06-06 12:00] VITALS: BP 149/88; PULSE 71; O2SAT 98
--- NOTE | 2024-06-06 12:04 | PC.NURSE ---
RAD at BS for xray
--- NOTE | 2024-06-06 12:22 | PC.NURSE ---
Dr. Saenz at BS for pt eval
[2024-06-06 12:38] VITALS: BP 155/85; PULSE 71; RESP 16; TEMP 36.6; O2SAT 98
== END 2024-06-06 12:38 | disposition home or self-care (01) ==
PROVIDERS: Emergency Provider Emergency Medicine; PCP Internal Medicine Adolescent Medicine
DX: M79.672 Pain in left foot (principal); S92.323A Displaced fracture of second metatarsal bone, unspecified foot, initial encounter for closed fracture
CPT/HCPCS: 73630; 99283

== ENCOUNTER 2024-07-05 13:03 | Outpatient (CLI) | payer MEDICAID, SELFPAY ==
--- NOTE | 2024-07-05 13:08 | XR_ITS ---
FINAL REPORT CLINICAL HISTORY: fx..pain COMPARISON: 06/06/2024 FINDINGS: LEFT FOOT Three views of the left foot demonstrate evidence of further interval healing of the distal 2nd metatarsal fracture with increased callus formation of the fracture site. There is no acute fracture or dislocation. The visualized joint spaces are normally aligned. The soft tissues are unremarkable. IMPRESSION: Further interval healing distal 2nd metatarsal fracture. Reviewed, Interpreted and Dictated by Grover Brown III, MD Transcribed by Regina Gtz Authenticated and [facility]
== END 2024-07-05 23:59 | disposition home or self-care (01) ==
LOC: RAD 13:05
PROVIDERS: PCP Internal Medicine Adolescent Medicine; Visit Provider Physician Assistant Surgical
DX: S92.322A Displaced fracture of second metatarsal bone, left foot, initial encounter for closed fracture (principal)
CPT/HCPCS: 73630

== ENCOUNTER 2025-05-21 11:00 | Outpatient (CLI) | payer MEDICAID, SELFPAY ==
--- NOTE | 2025-05-21 11:02 | US_ITS ---
FINAL REPORT CLINICAL HISTORY: MASS LT WRIST FINDINGS: Limited sonographic images were obtained of the left wrist soft tissues at the area of reported palpable abnormality. There is no convincing mass or fluid collection identified. IMPRESSION: Unremarkable exam at the area of interest. Consider MRI for further evaluation if needed. Reviewed, Interpreted and Dictated by Holly Ontiveros MD Transcribed by Regina Gtz Authenticated and [facility]
--- OUTSIDE RECORDS SUMMARY | 2025-05-21 11:05 | XMS_ITS | Clinical Summary ---
Author Organization Healthcare Address [address] [place] [address] Care Team Providers Care Philanthropy Officer Name Role Phone Luc Meng MD Primary Care Provider [phone] Allergies No known active allergies Medications No known medications Social History Tobacco Use Types Packs/Day Years Used Date Smoking Tobacco: Never Smokeless Tobacco: Never Tobacco Cessation:Counseling Given: Not Answered Alcohol Use Standard Drinks/Week Comments Never 0 (1 standard drink = 0.6 oz pur e alcohol) Comments Unknown Sex and Gender Information Value Date Recorded Sex Assigned at Not on file Legal Sex Female 4:59 PM EDT Gender Identity Not on file Sexual Orientation Not on file Last Filed Vital Signs Vital Sign Reading Time Taken Comments Blood Pressure 130/83 07/12/2023 2:19 PM EST Pulse 80 07/12/2023 2:19 PM EST Temperature - - Respiratory Rate - - Oxygen Saturation 97% 07/12/2023 2:19 PM EST Inhaled Oxygen Concentration - - Weight 63.5 kg (140 lb) 07/12/2023 2:19 PM EST Height 162.6 cm (5' 4 ) 07/12/2023 2:19 PM EST Body Mass Index 24.03 07/12/2023 2:19 PM EST Plan of Treatment Health Maintenance Due Date Last Done Comments [facility]-Depression Screening 1966 [facility]-HIV Screening 1966 [facility]-Hepatitis C Screening 1966 [facility]-Infant/Child/Adol SDOH Screenings 1966 [facility]- SDOH Screenings 1984 [facility]-Adult SDOH Screenings 1984 [facility]-DTaP,Tdap,and Td Vaccine s (1 - Tdap) 1985 [facility]-Hepatitis B Vaccines (1 of 3 - 19+ 3-dose series) 1985 [facility]-Pap Smear 12/26/1987 [facility]-Cervical Cancer Screening 1996 [facility]-HPV/Cotest 1996 CT Colonography 12/26/2011 Colonoscopy 12/26/2011 FIT-DNA 12/26/2011 FIT 12/26/2011 FOBT 12/26/2011 Sigmoidoscopy 12/26/2011 [facility]-Colorectal Cancer Screening 12/26/2011 [facility]-Breast Cancer Screening 2016 [facility]-Pneumococcal Vaccine: 50 + Years (1 of 1 - PCV) 2016 [facility]-Zoster Vaccines (1 of 2) 2016 ERR-NWFND-29 Vaccine ( season) 2025 [facility]-Influenza Vaccine (#1) 2025 HPV Vaccines Aged Out No longer eligi ble based on patient's age to complete this topic [facility]-HIB Vaccines Aged Out No longer e ligible based on patient's age to complete this topic [facility]-Hepatitis A Vaccines Aged Out No longer eligible based on patient's age to complete this topic [facility]-IPV Vaccines Aged Out No longer e ligible based on patient's age to complete this topic [facility]-Rotavirus Vaccines Aged Out No lo nger eligible based on patient's age to complete this topic Insurance [employer]ETNA [facility] MEDICAID Care Teams Philanthropy Officer Relationship Specialty Start Date End Date Luc Meng MD [address] [place] [address] PCP - General Internal Medicine 06/01/23
--- OUTSIDE RECORDS SUMMARY | 2025-05-21 11:05 | XMS_ITS | Encounter Summary ---
Author Organization Healthcare Address [address] [place] [address] Care Team Providers Care Mitten Sewer Name Role Phone Luc Meng MD Primary Care Provider [phone] Reason for Referral * Consultation (Routine) - Closed Specialty Diagnoses / Procedures Referred By Buddy porter Referred To Contact Hand Surgery Diagnoses Ganglion cyst of volar aspect of left wrist Ulnar abutment syndrome of left wrist Tenosynovitis of left wrist Luc Meng MD formerly [facility] [place] [address] Phone: tel: fax: [facility] [address] [place] [id number] Phone: tel: fax: Referral ID Status Reason Start Date Expiration Date Visits Re quested Visits Authorized [id number] Closed 05/31/2023 11/29/2024 1 1 Encounter Details Date Type Department Care Team (Late st Contact Info) Description 05/31/2023 Community Orders Community Practice [address] [place] [address] Luc Meng MD formerly [facility] [address] [place] [address] Ganglion cyst of volar aspect of left wrist (Primary Dx); Ulnar abutment syndrome of left wrist; Tenosynovitis of left wrist Social History Tobacco Use Types Packs/Day Years Used Date Smoking Tobacco: Never Assessed Comments Unknown Sex and Gender Information Value Date Recorded Sex Assigned at Not on file Legal Sex Female 4:59 PM EDT Gender Identity Not on file Sexual Orientation Not on file documented as of this encounter Plan of Treatment Scheduled Referrals Name Type Priority Associated Diagnoses Order Schedule Ambulatory referral to Orthopaedics Hand Outpatient Referral Routine Ganglion cyst of volar aspect of left wrist Ulnar abutment syndrome of left wrist Tenosynovitis of left wrist Ordered: 05/31/2023 documented as of this encounter Visit Diagnoses Diagnosis Ganglion cyst of volar aspect of left wrist- Primary Ulnar abutment syndrome of left wrist Tenosynovitis of left wrist documented in this encounter Care Teams Mitten Sewer Relationship Specialty Start Date End Date Luc Meng MD [address] [place] [address] PCP - General Internal Medicine 06/01/23 documented as of this encounter
== END 2025-05-21 23:59 | disposition home or self-care (01) ==
LOC: RAD 11:00
PROVIDERS: PCP Nurse Practitioner Family; Visit Provider Nurse Practitioner Family
DX: R22.32 Localized swelling, mass and lump, left upper limb (principal)
CPT/HCPCS: 76882

== ENCOUNTER 2025-06-12 08:29 | Outpatient (CLI) | payer MEDICAID, SELFPAY ==
--- NOTE | 2025-06-12 08:32 | MR_ITS ---
FINAL REPORT CLINICAL HISTORY: GANGLION CYST.KNOT ON ULNAR SIDE OF WRIST. KNOT COMES AND GOES. MARKER ON KNOT. FINDINGS: Multiplanar and multisequence imaging of the left wrist was obtained without intravenous contrast. BONES/JOINTS: There is subchondral T2 abnormal signal and several subchondral cyst within the lunate which are nonspecific but may be degenerative. Findings could be related to ulnar abutment syndrome. There is a cyst in the ulnar styloid process. There is multijoint degenerative disease. There is no acute osseous abnormality. There is no bone marrow edema. There is no evidence of AVN. LIGAMENTS: The scapholunate ligament is intact. There is no widening of the scapholunate distance. The lunotriquetral ligament is intact. Remaining intrinsic ligaments appear within normal limits. TFCC: The triangular fibrocartilage complex is without acute abnormality. TENDONS/MUSCLES: Tendons are unremarkable without tear. Musculature is unremarkable. OTHER SOFT TISSUES: There is no joint effusion. The median nerve has a normal appearance within the carpal tunnel. The ulnar nerve has a normal appearance. No discrete mass is seen at the marker placed at the area of interest. However,there appears to be nonspecific soft tissue however, along the volar wrist, but not deep to the marker is a 13 mm cystic lesion which could represent a ganglion cyst. IMPRESSION: Abnormal signal in the subchondral lunate which could be related to degenerative disease or ulnar abutment syndrome. No mass at the area of interest. However, along the volar wrist, but not deep to the marker is a 13 mm cystic lesion which could represent a ganglion cyst. Reviewed, Interpreted and Dictated by Holly Ontiveros MD Transcribed by Amarilys Adame Authenticated and [facility]
--- OUTSIDE RECORDS SUMMARY | 2025-06-12 08:53 | XMS_ITS | Encounter Summary ---
Author Organization Healthcare Address [address] [place] [address] Care Team Providers Care Lead Systems Analyst Name Role Phone Luc Meng MD Primary Care Provider [phone] Reason for Referral * Consultation (Routine) - Closed Specialty Diagnoses / Procedures Referred By Buddy porter Referred To Contact Hand Surgery Diagnoses Ganglion cyst of volar aspect of left wrist Ulnar abutment syndrome of left wrist Tenosynovitis of left wrist Luc Meng MD [facility] [place] [address] Phone: tel: fax: [facility] [address] [place] [phone] Phone: tel: fax: Referral ID Status Reason Start Date Expiration Date Visits Re quested Visits Authorized [id number] Closed 05/31/2023 11/29/2024 1 1 Encounter Details Date Type Department Care Team (Late st Contact Info) Description 05/31/2023 Community Orders Community Practice [address] [place] [address] Luc Meng MD [facility] [place] [address] Ganglion cyst of volar aspect of left [...] wrist documented in this encounter Care Teams Lead Systems Analyst Relationship Specialty Start Date End Date Luc Meng MD [address] [place] [address] PCP - General Internal Medicine 06/01/23 documented as of this encounter
--- OUTSIDE RECORDS SUMMARY | 2025-06-12 08:53 | XMS_ITS | Clinical Summary ---
Author Organization Healthcare Address [address] [place] [address] Care Team Providers Care Shellfish Sorter Name Role Phone Luc Meng MD Primary Care Provider [phone] Allergies No known active allergies Medications No [...] 2016 [facility]-Zoster Vaccines (1 of 2) 2016 [id number] Vaccine ( season) 2025 [facility]-Influenza Vaccine (#1) [...] age to complete this topic Insurance AETNA [facility] MEDICAID Care Teams Shellfish Sorter Relationship Specialty Start Date End Date Luc Meng MD [address] [place] [address] PCP - General Internal Medicine 06/01/23
== END 2025-06-12 23:59 | disposition home or self-care (01) ==
LOC: RAD 08:30
PROVIDERS: PCP Nurse Practitioner Family; Visit Provider Nurse Practitioner Family
DX: R93.6 Abnormal findings on diagnostic imaging of limbs (principal); M67.432 Ganglion, left wrist
CPT/HCPCS: 73221

== ENCOUNTER 2025-06-19 08:35 | Outpatient (CLI) | payer MEDICAID, SELFPAY ==
--- NOTE | 2025-06-19 08:38 | MM_ITS ---
PROCEDURE INFORMATION: Exam: MG Bilateral Screening 3D Mammography Exam date and time: 06/19/2025 9:06 AM Age: 59 years old Clinical indication: Screening examination TECHNIQUE: Imaging protocol: Bilateral Screening tomosynthesis and 2D mammography including computer-aided detection (CAD) when performed. COMPARISON: 1. MG MM DIG SCREENING MAMM BI W/CAD 06/06/2024 9:59 AM 2. MG MM DIG SCREENING MAMM BI W/CAD 04/07/2023 3:49 PM FINDINGS: MAMMOGRAPHY: Breast composition: There are scattered areas of fibroglandular density. Mass: None. Architectural distortion: None. Calcifications: No suspicious calcifications. Asymmetric density: None. Skin thickening: None. Axillary adenopathy: None. IMPRESSION: No mammographic evidence of malignancy. Annual screening is recommended unless otherwise clinically indicated. ASSESSMENT: BI-RADS Category 1: Negative.
--- OUTSIDE RECORDS SUMMARY | 2025-06-19 08:40 | XMS_ITS | Clinical Summary ---
Author Organization Healthcare Address [address] [place] [address] Care Team Providers Care Police Officer Crime Prevention Name Role Phone Luc Meng MD Primary Care Provider [phone] Allergies No known active allergies Medications No known medications Encounters Date Type Department Care Team Description 06/18/2025 Community Orders Community Practice [address] [place] [address] Lisa Woods SANTIONE Ganglion cyst (Primary Dx); Arthritis of hand, unspecified laterality from Last 3 Months Social History Tobacco Use Types Packs/Day Years [...] [facility]-HIV Screening 1966 [facility]-Hepatitis C Screening 1966 [facility]-/Child/Adol SDOH Screenings 1966 [facility]- SDOH Screenings 1984 [...] 2016 [facility]-Zoster Vaccines (1 of 2) 2016 [id number]-21 Vaccine (1 - 20 24-25 season) 2025 [facility]-Influenza Vaccine (#1) 2025 HPV [...] age to complete this topic Insurance [facility]NA [facility] MEDICAID Care Teams Police Officer Crime Prevention Relationship Specialty Start Date End Date Luc Meng MD [address] [place] [address] PCP - General Internal Medicine 06/01/23
--- OUTSIDE RECORDS SUMMARY | 2025-06-19 08:40 | XMS_ITS | Encounter Summary ---
Author Organization Healthcare Address [address] [place] [address] Care Team Providers Care Foot Tender Name Role Phone Luc Meng MD Primary Care Provider [phone] Reason for Referral * Consultation (Routine) - Authorized Specialty Diagnoses / Procedures Referred By Buddy porter Referred To Contact Hand Surgery Diagnoses Ganglion cyst Arthritis of hand, unspecified laterality Lisa Woods APRN [address] [place] [address] Phone: tel: fax: Jonny Mata MD [address] [address] Phone: tel: fax: Referral ID Status Reason Start Date Expiration Date Visits Requested Visits Authorized [id number] Authorized Specialty Services Required 12/18/2026 1 1 Encounter Details Date Type Department Care Team (Late st Contact Info) Description 06/18/2025 Community Orders Community Practice [address] [place] [address] Lisa Woods APRN [address] [place] [address] Ganglion cyst (Primary Dx); Arthritis of hand, unspecified laterality Social History Tobacco Use Types Packs/Day Years Used Date Smoking Tobacco: Never Smokeless Tobacco: Never Alcohol Use Standard Drinks/Week Comments Never 0 (1 standard drink = 0.6 oz pur e alcohol) Comments Unknown Sex and Gender Information Value Date Recorded Sex Assigned at Not on file Legal Sex Female 4:59 PM EDT Gender Identity Not on file Sexual Orientation Not on file documented as of this encounter Plan of Treatment Scheduled Referrals Name Type Priority Associated Diagnoses Orde r Schedule Ambulatory referral to Hand Surgery Outpatient Referral Routine Ganglion cyst Arthritis Of Hand, Unspecified Laterality Ordered: 06/18/2025 documented as of this encounter Visit Diagnoses Diagnosis Ganglion cyst- Primary Unspecified ganglion Arthritis of hand, unspecified laterality documented in this encounter Additional Health Concerns Assessment Noted Time A Body Mass Index follow-up plan has been documented for the patient 07/12/2023 4:49 PM EST documented as of this encounter Care Teams Foot Tender Relationship Specialty Start Date End Date Luc Meng MD [address] [place] [address] PCP - General Internal Medicine 06/01/23 documented as of this encounter
--- OUTSIDE RECORDS SUMMARY | 2025-06-19 08:40 | XMS_ITS | Encounter Summary ---
Author Organization Healthcare Address [address] [place] [address] Care Team Providers Care Pigment Furnace Tender Name Role Phone Luc Meng MD Primary Care Provider [phone] Reason for Referral * Consultation (Routine) - Closed Specialty Diagnoses / Procedures Referred By Buddy porter Referred To Contact Hand Surgery Diagnoses Ganglion cyst of volar aspect of left wrist Ulnar abutment syndrome of left wrist Tenosynovitis of left wrist Luc Meng MD [facility] to [facility] [address] [place] [address] Phone: tel: fax: [facility] [address] [place] [phone] Phone: tel: fax: Referral ID Status Reason Start Date Expiration Date Visits Re quested Visits Authorized [id number] Closed 05/31/2023 11/29/2024 1 1 Encounter Details Date Type Department Care Team (Late st Contact Info) Description 05/31/2023 Community Orders Community Practice [address] [place] [address] Luc Meng MD [facility] [address] [place] [address] Ganglion cyst of volar aspect of left [...] wrist documented in this encounter Care Teams Pigment Furnace Tender Relationship Specialty Start Date End Date Luc Meng MD [address] [place] [address] PCP - General Internal Medicine 06/01/23 documented as of this encounter
== END 2025-06-19 23:59 | disposition home or self-care (01) ==
LOC: RAD 08:36
PROVIDERS: PCP Nurse Practitioner Family; Visit Provider Nurse Practitioner Family
DX: Z12.31 Encounter for screening mammogram for malignant neoplasm of breast (principal); R92.323 Mammographic fibroglandular density, bilateral breasts
CPT/HCPCS: 77063; 77067

== ENCOUNTER 2025-08-02 13:57 | Outpatient (CLI) | payer MEDICAID, SELFPAY ==
--- OUTSIDE RECORDS SUMMARY | 2025-06-26 21:02 | XMS_ITS | Continuity of Care Document ---
Author Organization [facility] Phone Care Team Providers Care Concert Manager Name Role Phone BRANDON THORPE Primary Care KRYSTIAN ADAMS Primary Attending [phone] KRYSTIAN ADAMS Admitting KRYSTIAN ADAMS Unavailable [phone] KRYSTIAN ADAMS Surgeon [phone] ALLERGIES AND ADVERSE REACTIONS ALLERGIES AND ADVERSE REACTIONS Code System Allergy Substance Adverse Reaction Date Reaction (Severity) Comment Status Reported By Updated By No Known Allergies [email or web address] on June 20, 2025 1:35:21 PM [facility] FAMILY HISTORY RELATION: Father Status: LIVING SNOMED-CT Diagnosis Age At Onset Information not available RELATION: Mother Status: LIVING SNOMED-CT Diagnosis Age At Onset Information not available RESULTS Patient: EMA GUTIERREZ Date of : [birth year] 25 5 LABORATORY RESULTS Information is not available LABORATORY NARRATIVE RESULTS Information is not available RADIOLOGY RESULTS Information is not available PATHOLOGY NARRATIVE RESULTS ORDER 100: RFS-PATHOLOGY SPE CIMEN REQUEST (LOINC: 25735-8) ORDER DATE: June 21, 2025 11:00:00 AM [facility] Specimen Source: Pathology S pecimen Specimen Type: Surgical path ology specimen, clerical procedure including coding of diagnoses PERFORMING LAB: [address] [id number] Final Result Date: May 312024 2:19:00 AM [facility] (TECH: [facility]) TEST: RFS-PATHOLOGY SPECIMEN REQUEST See Scanned Report Testing p erformed at [facility] [address] [place] [address] or [phone] Srini Paredes M.D., Service Tech/Welderinstrument technician RESULTS No Micro Labs/Results Exist for Patient BLOOD ADMIN RESULTS Information is not available MEDICATIONS HOME MEDICATIONS Status RXNORM NDC Medication Dose Route Frequency Dates Comments Reported By Updated By Active [id number] Adderall Oral Tablet 10 MG 10.0 MG PO BID Last Dose: [id number] on June 20, 2025 1:35:43 PM [place] DISCHARGE MEDICATIONS Status RXNORM NDC Medication Dose Route Frequency Dates Dis pense Data Comments Physician Updated By No Discharge Medication Info rmation Available INPATIENT MEDICATIONS Status RXNORM NDC Medication Dose Route Frequency Rat e Quantity Dates Indication Dispense Data Comments Physician Updated By Discont inued [id number] 2804 0016 505 LIDOCAINE HCL (PF) 2 % SOLN 5.0 ML INTRAV ENOUS ONE TIME ONLY Start: Octobe r 2024 3:57:0 0 PM UTC End: Octobe r 2024 3:57:0 0 PM UTC ANGIE BOLAND MD INTERFAC ED on June 21, 2025 3:56:00 PM [place] Discont inued [id number] 3504 3026 977 propofol (DIPRIVAN) 500 MG/50 ML EMUL 50.0 ML INTRAV ENOUS ONE TIME ONLY Start: Octobe r 2024 3:57:0 0 PM UTC End: Octobe r 2024 3:57:0 0 PM UTC ANGIE BOLAND MD INTERFAC ED on June 21, 2025 3:56:00 PM [place] SOCIAL HISTORY SOCIAL HISTORY - Smoking Status SNOMED-CT Social History Element Description Effective Dates Offered Cessation Comment Updated By [id number] Current Tobacco smoking status Never Smoked [id number] on June 20, 2025 1:40:17 PM [place] SOCIAL HISTORY - Gender Sex: Female SOCIAL HISTORY - Status : status i nformation is not available Intention in Next Year: intention information is not available SOCIAL HISTORY - Assessments Code System Description Status Date Value of Assessment Updated By Comment Assessment Information is no t available SOCIAL HISTORY - [place] Affiliation [place] information is not av ailable SOCIAL HISTORY - Legal Sex Legal Sex information is not available SOCIAL HISTORY - Sexual Behavior Sexual Orientation Gender Identity SNOMED-CT Description SNO MED -CT Description Activity Level No of Partners Partner Type UpdatedBy Information is not available SOCIAL HISTORY - Occupation Occupation information is no t available VITAL SIGNS PATIENT VITAL SIGNS This section displays the mo st recent value for each vital sign as of June 27, 2025 2:02:52 AM UTC Loinc Code Vital Sign Activity Date Result Updated By 8302-2 Body height June 21, 2025 3:19:48 PM UTC 162.56 cm (64.0 in) [id number] on June 21, 2025 3:19:48 PM UTC 84104-5 Body mass index (BMI ) [Ratio] June 21, 2025 3:19:48 PM UTC 25.744 kg/m2 3140-1 Body Surface Area Derived From Formula June 21, 2025 3:19:48 PM UTC 1.7308 m2 8310-5 Body temperature June 21 5:11:00 PM UTC 97.0 [degF] 65733-3 Body weight Measured June 21, 2025 3:19:48 PM UTC 68.03 kg (150.0 lb) [id number] on June 21, 2025 3:19:48 PM UTC 8462-4 Diastolic blood pressure June 21, 2025 5:20:00 PM UTC 57.0 mm[Hg] 8867-4 Heart rate June 21, 2025 5:20:00 PM UTC 55 /min 35559-8 Oxygen saturation in Arterial blood by Pulse oximetry June 21, 2025 5:20:00 PM UTC 100.0 % 9279-1 Respiratory rate June 21 5:20:00 PM UTC 14 /min 8480-6 Systolic blood pressure June 21, 2025 5:20:00 PM UTC 113.0 mm[Hg] PEDIATRIC GROWTH CHART - VITAL SIGNS This section displays Head C ircumference Percentile, Weight for Length Percentile and BMI Percentile Loinc Code Pediatric Measure Age (Months) Result Updat ed By No Pediatric Growth Chart Pe rcentile Information Available. PROCEDURES PATIENT PROCEDURES CODE SYSTEM DESCRIPTION STATUS PERFORMED DATE UPD ATED BY [id number] SNOMED-CT COLONOSCOPY completed June 21 4:00:00 AM UTC [id number] on June 21, 2025 4:38:08 PM UTC PROCEDURE NOTE Procedure Note information i s not available. HEALTH CONCERNS Problems Concern Status Health Concern problem infor mation not available. Smoking Status Status Years Used Consumed packs p er day Health Concern smoking histo ry information not available. Family History Concern Status Health Concern family histor y information not available. ENCOUNTERS ENCOUNTER INFORMATION Reason for Visit COLONOSCOPY Admission June 21, 2025 2:42:[address] [address] Discharge June 21, 2025 10:42:00 PM [facility] DISCHARGED TO HOME OR SELF CARE ENCOUNTER DIAGNOSES Notes information is not madison ilable. Code System Diagnosis Onset Date Diagnosis information is not available. ABSTRACT DIAGNOSES Code System Diagnosis Updated By Abatement Date Z12.11 ICD10 ENCOUNTER FOR SC REENING FOR MALIGNANT NEOPLASM OF COLON [id number] on June 25, 2025 5:27:11 PM UT Z12.11 ICD10 ENCOUNTER FOR SC REENING FOR MALIGNANT NEOPLASM OF COLON [id number] on June 25, 2025 5:27:12 PM UT D12.8 ICD10 BENIGN NEOPLASM OF RECTUM PQ [id number] on June 25, 2025 5:27:12 PM [place] N18.2 ICD10 CHRONIC KIDNEY D ISEASE, STAGE 2 (MILD) [id number] on June 25, 2025 5:27:12 PM [facility] F90.9 ICD10 ATTENTION-DEFICI T HYPERACTIVITY DISORDER, UNSPECIFIED TYPE [id number] on June 25, 2025 5:27:12 PM [facility] Z79.899 ICD10 OTHER LONG-TERM (CURRENT) DRUG THERAPY [id number] on June 25, 2025 5:27:12 PM [facility] CARE TEAM Care Concert Manager Role BRANDON THORPE Primary Care KRYSTIAN ADAMS Primary Attending KRYSTIAN ADAMS Admitting KRYSTIAN ADAMS Referring KRYSTIAN ADAMS Surgeon CARE TEAM CARE general production manager Role on Team Location Telecom Status Start Date End Nathan e Updated By VERO Reyes CRNA Healthcare professional normal June 21, 2025 4:35:00 PM [place] June 21, 2025 10:42:00 PM [facility] [id number] on June 21, 2025 5:12:25 PM [facility] ANGIE BOLAND MD Surgeon normal June 21, 2025 4:35:00 PM [place] June 21, 2025 10:42:00 PM [facility] [id number] on June 21, 2025 5:12:25 PM [facility] MAURILIO DEL ANGELP PCP normal June 21, 2025 2:45:23 PM [place] June 21, 2025 4:00:00 AM [facility] [id number] on June 21, 2025 5:12:[address] FERNANDEZ NAME IN RN PCP normal June 20, 2025 2:27:25 PM UTC June 21, 2025 2:45:23 PM UTC [id number] on June 21, 2025 5:12:25 PM UTC ANGIE BOLAND MD Referring normal June 20, 2025 2:27:25 PM UTC June 21, 2025 4:00:00 AM UTC [id number] on June 21, 2025 5:12:25 PM UTC ANGIE BOLAND MD Attending normal June 20, 2025 2:27:25 PM UTC June 21, 2025 4:00:00 AM UTC [id number] on June 21, 2025 5:12:25 PM UTC ANGIE BOLAND MD Admitting normal June 20, 2025 2:27:25 PM UTC June 21, 2025 4:00:00 AM UTC [id number] on June 21, 2025 5:12:25 PM UTC
--- OUTSIDE RECORDS SUMMARY | 2025-08-02 09:10 | XMS_ITS | Encounter Summary ---
Author Organization Healthcare Address [address] [id number] Care Team Providers Care Cooperage Shop Supervisor Name Role Phone Luc Meng MD Primary Care Provider [phone] Reason for Referral * Consultation (Routine) - Closed Specialty Diagnoses / Procedures Referred By Buddy porter Referred To Contact Occupational Therapy Diagnoses Ulnar impaction syndrome, left Jonny Mata MD [address] [place] [phone] Phone: tel: fax: Referral ID Status Reason Start Date Expiration Date V isits Requested Visits Authorized [id number] Closed Specialty Services Required 08/02/2025 02/01/2027 1 1 Reason for Visit * Reason Comments Follow-up * Consultation (Routine) - Closed Specialty Diagnoses / Procedures Referred By Buddy porter Referred To Contact Hand Surgery Diagnoses Ganglion cyst Arthritis of hand, unspecified laterality Lisa Woods, TRAFFIC REPRESENTATIVE [address] [place] [address] Phone: tel: fax: Jonny Mata MD [address] [place] [phone] Phone: tel: fax: Referral ID Status Reason Start Date Expiration Date V isits Requested Visits Authorized [id number] Closed Specialty Services Required 06/18/2025 12/18/2026 1 1 Encounter Details Date Type Department Care Team (Late st Contact Info) Description 08/02/2025 9:10 AM EST Office Visit Loc Hand [address] [place] [address] Jonny Mata MD [address] [place] [address] Ulnar impaction syndrome, left (Primary Dx) Social History Tobacco Use Types Packs/Day Years [...] on file documented as of this encounter Last Filed Vital Signs Vital Sign Reading Time Taken Comments Blood Pressure 121/80 08/02/2025 9:03 AM EST Pulse 74 08/02/2025 9:03 AM EST Temperature - - Respiratory Rate - - Oxygen Saturation 98% 08/02/2025 9:03 AM EST Inhaled Oxygen Concentration - - Weight 68 kg (150 lb) 08/02/2025 9:03 AM EST Height 162.6 cm (5' 4 ) 08/02/2025 9:03 AM EST Body Mass Index 25.75 08/02/2025 9:03 AM EST documented in this encounter Miscellaneous Notes * Progress Notes - Ronald Maher MD - 08/02/2025 9:10 AM EST ORTHOPEDIC HAND FOLLOWUP NOTE 59 year old female presenting with left ulnar impaction syndrome (last seen in 2022). Patient states that she underwent a repeat MRI of her left wrist due to swelling of the ulnar side of her wrist and pain. She says that the pain has since resolved and comes and goes. Patient denies any pain rightnow. She has not tried bracing, injections, therapy, or NSAIDs. She is able to use her hand and wrist without difficulty. She denies any numbness or tingling. She denies any history of fracture or injury to the wrist. Exam: Upper Extremity Focused Musculoskeletal Exam: Left UE Skin intact, no deformity, soft compartments, no pain with passive stretch, non tender to palpation Motor: 5/5 Biceps/Brach, 5/5 Triceps, 5/5 WF, 5/5 WE, 5/5 FF, 5/5 FE, 5/5 APB, 5/5 EPL, 5/5 FPL Sensory: Median nerve dist: Normal, Ulnar Nerve dist: Normal, Radial nerve dist: normal Vascular: 2+ radial pulse, cap refill <2 sec, digits WWP ROM: Full composite fist, thumb opposes to base of 5th Wrist: F/E 80/70, Prono-supination 80/70 Mild TTP over the TFCC No TTP over the ECU No TTP over the lunate No snuffbox tenderness or distal scaphoid tenderness No palpable masses or swelling Negative [place] My independent interpretation of radiographic testing shows: There is a 13 mm fluid collection volarly which may represent a ganglion cyst. Assessment and plan: 59F presenting with left ulnar impaction syndrome and a relatively small volar ganglion cyst. We think that her ulnar sided wrist pain is the result of ulnar impaction and not the small volar ganglion cyst which is likely an incidental finding. Plan to continue nonoperative treatment at this time. We will have her work with therapy and wear a wrist widget. Her wrist does not hurt today, but we will try a steroid injection the next time she has a flare of wrist pain. Surgical options include an ulnar shortening osteotomy vs. Wrist arthroscopy and wafer procedure. Arthroscopy and wafer procedure would be the better option in her age group, however her pain isn't quite disabling and severe enough for surgery yet and she has not trialed nonoperative treatment. She will follow up PRN No diagnosis found. No orders of the defined types were placed in this encounter. No follow-ups on file. Cosigned by Jonny Mata MD at 08/02/2025 4:17 PM EST Associated attestation - Jonny Mata MD - 08/02/2025 4:17 PM EST I saw and evaluated the patient with the resident/fellow. I discussed the case with the resident/fellow and agree with the findings and plan as documented. documented in this encounter Plan of Treatment Scheduled Referrals Name Type Priority Associated Diagnoses Orde r Schedule Hand Therapy Outpatient Referral Routine Ulnar impaction syndrome, left Expected: 08/02/2025 (Approximate), Expires: 02/03/2027 documented as of this encounter Visit Diagnoses Diagnosis Ulnar impaction syndrome, left- Primary documented in this encounter Additional Health Concerns Assessment Noted Time A Body Mass Index follow-up plan has been documented for the patient 08/02/2025 11:04 AM EST documented as of this encounter Care Teams Cooperage Shop Supervisor Relationship Specialty Start Date End Date Luc Meng MD [address] [place] [address] PCP - General Internal Medicine 06/01/23 documented as of this encounter
--- OUTSIDE RECORDS SUMMARY | 2025-08-02 10:30 | XMS_ITS | Encounter Summary ---
Author Organization Healthcare Address [address] [place] [address] Care Team Providers Care Furniture Finisher Helper Name Role Phone Luc Meng MD Primary Care Provider [phone] Reason for Visit * Consultation (Routine) - Closed Specialty Diagnoses / Procedures Referred By Buddy porter Referred To Contact Occupational Therapy Diagnoses Ulnar impaction syndrome, left Jonny Mata MD [address] [address] Phone: tel: fax: Referral ID Status Reason Start Date Expiration Date V isits Requested Visits Authorized [id number] Closed Specialty Services Required 08/02/2025 02/01/2027 1 1 Encounter Details Date Type Department Care Team (Late st Contact Info) Description 08/02/2025 10:30 AM EST Office Visit [facility] [address] [place] [address] Kim Sinclair Ulnar impaction syndrome, left (Primary Dx) Social [...] on file documented as of this encounter Miscellaneous Notes * Progress Notes - Kim Sinclair - 08/02/2025 10:30 AM EST Occupational Therapy Orthotic Fitting Note Date: 08/02/25 Name: Ayah Mcmillan DOB: 1965 Time in: 10:10 am Time out: 10:20 am SUBJECTIVE: Pt verbalized understanding of orthotic wear and care. Pain: 09/08 location: left Wrist. Description: aching OBJECTIVE: Quick DASH score: 11.4% Fitting of left wrist widget orthotic per physician orders status post left ulnar sided wrist pain. Patient was educated on orthotic wear, care, donning, doffing and precautions and this information was provided on a handout. Patient wore orthosis while in clinic for 5 minutes followed by skin check. No signs or symptoms ofpoor fit. ASSESSMENT: Good orthotic fit and patient Verbalized and Demonstrated understanding of orthotic wear, care, andeducation. PLAN: Patient to return to clinic PRN for orthotic modification. This orthosis is medically necessary and required as part of this patients recovery. documented in this encounter Plan of Treatment Not on file documented as of this encounter Visit Diagnoses Diagnosis Ulnar impaction syndrome, left- Primary documented in this encounter Additional Health Concerns Assessment Noted Time A Body Mass Index follow-up plan has been documented for the patient 08/02/2025 11:04 AM EST documented as of this encounter Care Teams Furniture Finisher Helper Relationship Specialty Start Date End Date Luc Meng MD [address] [place] [address] PCP - General Internal Medicine 06/01/23 documented as of this encounter
[2025-08-02 20:54] LABS: Coronavirus 19, PCR Not Detected (NotDetected); Influenza A, PCR Not Detected (NotDetected); Influenza B, PCR Not Detected (NotDetected)
--- OUTSIDE RECORDS SUMMARY | 2025-08-05 13:59 | XMS_ITS ---
Care Plan - [facility], [facility] Created on: August 05, 2025 DemarioramírezMarquiseMarya : 1965 Sex: Female Author Organization [facility] Address [address] [place] [phone] Phone Care Team Providers Care Deputy General Counsel Name Role Phone Juju ALVAREZ, French Strickland Unavailable [phone]
--- OUTSIDE RECORDS SUMMARY | 2025-08-05 13:59 | XMS_ITS | Encounter Summary ---
Author Organization Healthcare Address [address] [place] [address] Care Team Providers Care Assistant Professor Of Art Name Role Phone Luc Meng MD Primary Care Provider [phone] Reason for Referral * Consultation (Routine) - Closed Specialty Diagnoses / Procedures Referred By Buddy porter Referred To Contact Hand Surgery Diagnoses Ganglion cyst of volar aspect of left wrist Ulnar abutment syndrome of left wrist Tenosynovitis of left wrist Luc eMng MD [facility] [address] [place] [address] Phone: tel: fax: [facility] [address] [place] [phone] Phone: tel: fax: Referral ID Status Reason Start Date Expiration Date Visits Re quested Visits Authorized [id number] Closed 05/31/2023 11/29/2024 1 1 Encounter Details Date Type Department Care Team (Late st Contact Info) Description 05/31/2023 Community Orders Community Practice [address] [place] [address] Luc Meng MD [facility] [address] [place] [address] Ganglion cyst of volar aspect of left [...] wrist documented in this encounter Care Teams Assistant Professor Of Art Relationship Specialty Start Date End Date Luc Meng MD [address] [place] [address] PCP - General Internal Medicine 06/01/23 documented as of this encounter
--- OUTSIDE RECORDS SUMMARY | 2025-08-05 13:59 | XMS_ITS | Encounter Summary ---
Author Organization Healthcare Address [address] [place] [address] Care Team Providers Care Retina Subspecialist Name Role Phone Luc Meng MD Primary Care Provider [phone] Reason for Referral * Consultation (Routine) - Closed Specialty Diagnoses / Procedures Referred By Buddy porter Referred To Contact Hand Surgery Diagnoses Ganglion cyst Arthritis of hand, unspecified laterality Lisa Woods APRN [address] [address] Phone: tel: fax: Jonny Mata MD [address] [facility] [address] [place] [address] Phone: tel: fax: Referral ID Status Reason Start Date Expiration Date V isits Requested Visits Authorized [id number] Closed Specialty Services Required 06/18/2025 12/18/2026 1 1 Encounter Details Date Type Department Care Team (Late st Contact Info) Description 06/18/2025 Community Orders Community Practice [address] [place] [address] Lisa Woods APRN [address] [place] [address] Ganglion cyst (Primary Dx); Arthritis of hand, [...] documented as of this encounter Care Teams Retina Subspecialist Relationship Specialty Start Date End Date Luc Meng MD [address] [place] [address] PCP - General Internal Medicine 06/01/23 documented as of this encounter
--- OUTSIDE RECORDS SUMMARY | 2025-08-05 14:00 | XMS_ITS | Encounter Summary ---
Author Organization Healthcare Address [address] [place] [address] Care Team Providers Care Research Phlebotomist Name Role Phone Luc Meng MD Primary Care Provider [phone] Encounter Details Date Type Department Care Team (Latest Contact Info) Description 08/02/2025 Travel Social History Tobacco Use Types Packs/Day Years [...] as of this encounter Plan of Treatment Not on file documented as of this encounter Visit Diagnoses Not on filedocumented in this encounter Additional Health Concerns Assessment Noted Time A Body Mass Index follow-up plan has been documented for the patient 08/02/2025 11:04 AM EST documented as of this encounter Care Teams Research Phlebotomist Relationship Specialty Start Date End Date Luc Meng MD [address] [place] [address] PCP - General Internal Medicine 06/01/23 documented as of this encounter
--- OUTSIDE RECORDS SUMMARY | 2025-08-05 14:00 | XMS_ITS | Encounter Summary ---
Author Organization Healthcare Address [address] [place] [address] Care Team Providers Care Street Engineer Name Role Phone Luc Meng MD Primary Care Provider [phone] Encounter Details Date Type Department Care Team ([facility] st Contact Info) Description 06/12/2025 Orders Only External Location [address] [place] [address] Provider, External Social History Tobacco Use Types Packs/Day Years [...] on file documented as of this encounter Procedures Procedure Name Priority Date/Time Associated Diagnosis Comments MR MSK OUTSIDE IMAGES 06/12/2025 8:37 AM EDT documented in this encounter Results * MR MSK OUTSIDE IMAGES (06/12/2025 8:37 AM EDT) Anatomical Region Laterality Modality Magnetic Resonan ce 06/12/2025 8:37 AM EDT us External Provider IMG MRI PROCEDURES Final Resul t documented in this encounter Visit Diagnoses Not on filedocumented in this encounter Additional Health Concerns Assessment Noted Time A Body Mass Index follow-up plan has been documented for the patient 07/12/2023 4:49 PM EST documented as of this encounter Care Teams Street Engineer Relationship Specialty Start Date End Date Luc Meng MD [address] [place] [address] PCP - General Internal Medicine 06/01/23 documented as of this encounter
--- OUTSIDE RECORDS SUMMARY | 2025-08-05 14:00 | XMS_ITS | Encounter Summary ---
Author Organization Healthcare Address [address] [place] [address] Care Team Providers Care Vice President Of Instruction Name Role Phone Luc Meng MD Primary Care Provider [phone] Encounter Details Date Type Department Care Team ([facility] st Contact Info) Description 05/21/2025 Orders Only External Location [address] [place] [address] Provider, External Social History Tobacco Use Types [...] Procedure Name Priority Date/Time Associated Diagnosis Comments US OUTSIDE IMAGES 05/21/2025 11:04 AM EDT documented in this encounter Results * US OUTSIDE IMAGES (05/21/2025 11:04 AM EDT) Anatomical Region Laterality Modality Ultrasound 05/21/2025 11:0 4 AM EDT us External Provider IMG US PROCEDURES Final Result documented in this encounter Visit Diagnoses Not on filedocumented in this encounter Additional Health Concerns Assessment Noted Time A Body Mass Index follow-up plan has been documented for the patient 07/12/2023 4:49 PM EST documented as of this encounter Care Teams Vice President Of Instruction Relationship Specialty Start Date End Date Luc Meng MD [address] [place] [address] PCP - General Internal Medicine 06/01/23 documented as of this encounter
--- OUTSIDE RECORDS SUMMARY | 2025-08-05 14:00 | XMS_ITS ---
Author Organization [facility] , [facility] Address [address] [place] [phone] Phone Care Team Providers Care Dental Office Receptionist Name Role Phone Juju ALVAREZ, French Marco A Unavailable [phone] Plan of Treatment No Plan of Treatment Recorded Assessments Includes: Assessments for all patient encounters No Assessments Recorded Medical Equipment - Implanted Devices Includes: Current and historical Devices No Medical Equipment Recorded Medications Administered Includes: Administered Medications in patient's chart No Administered Medications Recorded Results Includes: Results from 08/05/2024 through 08/05/2025 No Results Recorded For Specified Dates History of Present Illness History of Present Illness not supported for this document type No History of Present Illness Recorded Social History No Social History Recorded - Smoking Status Unknown Medical History Includes: Medical History in patient's chart No Medical History Recorded Family History Includes: Family History in patient's chart No Family History Recorded Review of Systems Review of Systems not supported for this document type No Review of Systems Recorded Mental Status No Mental Status Recorded Functional Status No Functional Status Recorded Physical Exam Physical Exam not supported for this document type No Physical Exam Recorded Insurance Includes: Active Insurance Policies Plan Name Member ID Group # Subscriber Relationship Effect tomas Dates 1 - [employer] [facility] [id number] Marya Mcmillan Self Clinical Notes Includes: Signed Clinical Notes starting from 08/13/2022 No Clinical Notes Recorded
--- OUTSIDE RECORDS SUMMARY | 2025-08-05 14:00 | XMS_ITS | Clinical Summary ---
Author Organization Healthcare Address [address] [place] [address] Care Team Providers Care Store Warehouse Associate Name Role Phone Luc Meng MD Primary Care Provider [phone] Allergies No known active allergies Medications amphetamine-dextro amphetamine (Adderall) 10 MG tablet 02/26/2025 Active Active Problems Problem Noted Date Diagnosed Date Ulnar impaction syndrome, left 08/02/2025 Encounters Date Type Department Care Team Description 08/02/2025 10:30 AM EST Office Visit [facility] [address] [place] [address] Kim Sinclair Ulnar impaction syndrome, left (Primary Dx) 08/02/2025 9:10 AM EST Office Visit [facility] [address] [place] [id number] Jonny Mata MD Ulnar impaction syndrome, left (Primary Dx) 08/02/2025 Travel 06/18/2025 Community Orders Community Practice [address] [place] [address] Lisa Woods APRN Ganglion cyst (Primary Dx); Arthritis of hand, unspecified laterality 06/12/2025 Orders Only External Location [address] [place] [address] Provider, External 05/21/2025 Orders Only External Location [address] [place] [address] Provider, External from Last 3 Months Social History Tobacco [...] Mass Index 25.75 08/02/2025 9:03 AM EST Plan of Treatment Health Maintenance Due Date Last Done Comments [facility]-Depression Screening 1965 [facility]-HIV Screening 1965 [facility]-Hepatitis C Screening 1965 [facility]-Infant/Child/Adol SDOH Screenings 1965 [facility]- SDOH Screenings 1984 [facility]-Adult SDOH Screenings 1984 [facility]-DTaP,Tdap,and Td Vaccines (1 - Tdap) 1985 [facility]-Hepatitis B Vaccines (1 of 3 - 19+ 3-dose series) 1985 [facility]-Pap Smear 12/26/1987 [facility]-Cervical Cancer Screening 1996 [facility]-HPV/Cotest 1996 CT Colonography 12/26/2011 Colonoscopy 12/26/2011 FIT-DNA 12/26/2011 FIT 12/26/2011 FOBT 12/26/2011 Sigmoidoscopy 12/26/2011 [facility]-Colorectal Cancer Screening 12/26/2011 [facility]-Breast Cancer Screening 2016 [facility]-Pneumococcal Vaccine: 50+ Years (1 of 1 - PCV) 2016 [facility]-Zoster Vaccines (1 of 2) 2016 [id number] Vaccine (1 - 2024- season) 2025 [facility]-Influenza Vaccine (#1) 2025 [facility]-Obesity Intervention Completed 025, 08/02/2025, 07/12/2023, Additional history exists HPV Vaccines Aged Out No longer eligi [...] on patient's age to complete this topic Procedures Procedure Name Priority Date/Time Associated Diagnosis Comments MR MSK OUTSIDE IMAGES 06/12/2025 8:37 AM EDT US OUTSIDE IMAGES 05/21/2025 11:04 AM EDT from Last 3 Months Results * MR MSK OUTSIDE IMAGES (06/12/2025 8:37 AM EDT) Anatomical Region Laterality Modality Magnetic Resonan ce 06/12/2025 8:37 AM EDT us External Provider IMG MRI PROCEDURES Final Resul t * US OUTSIDE IMAGES (05/21/2025 11:04 AM EDT) Anatomical Region Laterality Modality Ultrasound 05/21/2025 11:0 4 AM EDT us External Provider IMG US PROCEDURES Final Result from Last 3 Months Insurance [facility] MEDICAID Care Teams Store Warehouse Associate Relationship Specialty Start Date End Date Luc Meng MD [address] [place] [address] PCP - General Internal Medicine 06/01/23
== END 2025-08-02 23:59 | disposition home or self-care (01) ==
LOC: LAB.DROPOF 08-05 13:58
PROVIDERS: PCP Nurse Practitioner Family; Visit Provider Student in an Organized Health Care Education/Training Program
DX: J06.9 Acute upper respiratory infection, unspecified (principal)
CPT/HCPCS: 87631